=== PATIENT | female | born 1985 | race Caucasian/White ===

== ENCOUNTER 2018-07-15 15:37 | Emergency (ER) | payer OTHER ==
[2018-07-15] MEDS ORDERED: Ondansetron 4 MG/2 ML SDV IVPUSH ONE (15:40)
[2018-07-15] MEDS ORDERED: Sodium Chloride 0.9% 1,000 ML IV ONE ×2 (15:40→18:21)
--- NOTE | 2018-07-15 15:46 | EDM.PDOC ---
ED HPI GENERAL MEDICAL PROBLEM - General Chief Complaint: Gastrointestinal Problem Stated Complaint: VOMITING FOR 9 DAYS Time Seen by Provider: 07/15/18 15:44 Source of Information: Reports: Patient History Limitations: Reports: No Limitations - History of Present Illness INITIAL COMMENTS - FREE TEXT/NARRATIVE: HISTORY AND PHYSICAL: History of present illness: Patient is a 32-year-old female who presents to the emergency room with complaints of nausea, vomiting, diarrhea and generalized abdominal pain 9 days. Patient states that immediately after eating she will have bouts of either diarrhea or vomiting. She states she has been trying to use Imodium and probiotics [id number] which have not alleviated any of her symptoms. Patient reports that she has not been able to keep down her home medications over the past several days. Patient denies any fever, chills, headache, change in vision, syncope or near syncope. Denies any chest pain, back pain, shortness of breath or cough. Denies any abdominal pain, nausea, vomiting, diarrhea, constipation or dysuria. Has not noted any blood in urine or stool. Patient has been eating and drinking appropriately. Review of systems: As per history of present illness and below otherwise all systems reviewed and negative. Past medical history: As per history of present illness and as reviewed below otherwise noncontributory. Surgical history: As per history of present illness and as reviewed below otherwise noncontributory. Social history: See social history for further information Family history: As per history of present illness and as reviewed below otherwise noncontributory. Physical exam: General: Well-developed and well nourished 32-year-old female. Alert and oriented. Nontoxic appearing and in no acute distress. HEENT: Atraumatic, normocephalic, pupils equal and reactive bilaterally, negative for conjunctival pallor or scleral icterus, mucous membranes moist, TMs normal bilaterally, throat clear, neck supple, nontender, trachea midline. No drooling or trismus noted. No meningeal signs. No hot potato voice noted. Lungs: Clear to auscultation, breath sounds equal bilaterally, chest nontender. Heart: S1S2, regular rate and rhythm without overt murmur Abdomen: Soft, nondistended, right upper and right lower quadrant tenderness. Negative for masses or hepatosplenomegaly. Negative for costovertebral tenderness. Pelvis: Stable nontender. Genitourinary: Deferred. Rectal: Deferred. Skin: Intact, warm, dry. No lesions or rashes noted. Extremities: Atraumatic, moves all extremities per self with difficulty or deficits, negative for cords or calf pain. Neurovascular unremarkable. Neuro: Awake, alert, oriented. Cranial nerves II through XII unremarkable. Cerebellum unremarkable. Motor and sensory unremarkable throughout. Exam nonfocal. Notes: Patient continues to have nausea and vomiting after the Zofran, Reglan and Phenergan. We'll continue to monitor. CT of the abdomen and pelvis results are pending. Lab work is unremarkable. Stool study was obtained, at this time C. difficile and Campylobacter are negative. CT of the abdomen and pelvis is unremarkable. No findings to explain the abdominal pain, nausea or diarrhea. Patient's symptoms and vital signs have improved. I did share all the findings with the patient. I offered her admission for dehydration and overnight monitoring. She declines stating she would like to be discharged to home. We discussed signs and symptoms that would prompt her to return to the emergency room. Supportive care measures were reviewed and discussed. Voices understanding and is agreeable to plan of care. Denies any further questions or concerns at this time. Diagnostics: CBC, CMP, lipase, UA, hCGU Therapeutics: IV fluid, Zofran, Bentyl, Reglan, Phenergan, Labetolol Prescription: Phenergan (#8) Zofran (#10) Impression: Gastroenteritis Hypertension Plan: 1. Please take your home medications as directed. He may want to take these after your nausea and vomiting has subsided with the medications that have been prescribed. 2. Small frequent sips of fluids to prevent dehydration. BRAT (bananas, rice, applesauce, toast) diet and then advance as tolerated. 3. Follow-up with your primary care provider as discussed. Return to the ED as needed and as discussed. Definitive disposition and diagnosis as appropriate pending reevaluation and review of above. right abdomen Pain Score (Numeric/FACES): 8 - Related Data Allergies Allergy/AdvReac Type Severity Reaction Status Date / Time No Known Allergies Allergy Verified 07/15/18 16:14 Home Meds: Home Meds Labetalol 1 tab PO ASDIRECTED 07/15/18 [History] Omeprazole Magnesium [Prilosec Otc] 1 tab PO ASDIRECTED 07/15/18 [History] Sertraline HCl [Zoloft] 1 tab PO DAILY 07/15/18 [History] busPIRone [Buspar] 1 tab PO DAILY 07/15/18 [History] ED ROS GENERAL - Review of Systems Review Of Systems: ROS reveals no pertinent complaints other than HPI. ED EXAM, GI/ABD - Physical Exam Exam: See Below (See dictation) Course - Vital Signs Last Recorded V/S: Last Vital Signs Temp 97.9 F 07/15/18 16:00 Pulse 65 07/15/18 18:50 Resp 20 07/15/18 17:53 BP 183/106 H 07/15/18 18:50 Pulse Ox 97 07/15/18 17:53 - Orders/Labs/Meds Orders: Active Orders 24 hr Category Date Time Status CULTURE STOOL + CAMPY+SHIGATOX [RM] Stat Lab 07/15/18 16:51 Results OVA & PARASITES BY IMMUNOASSAY [MREF] Stat Lab 07/15/18 16:51 Received Sodium Chloride 0.9% [Normal Saline] 1,000 ml Med 07/15/18 18:21 Active IV STAT Isolation [COMM] Stat Oth 07/15/18 15:54 Ordered Medication Orders Sodium Chloride (Normal Saline) 1,000 mls @ 250 mls/hr IV STAT ONE Stop: 07/15/18 22:20 Last Admin: 07/15/18 18:35 Dose: 250 mls/hr Labs: Laboratory Tests 07/15/18 07/15/18 07/15/18 Range/Units 16:05 16:05 16:51 WBC 9.95 (4.0-11.0) K/uL RBC 5.78 (4.30-5.90) M/uL Hgb 14.7 (12.0-16.0) g/dL Hct 46.1 H (36.0-46.0) % MCV 79.8 L (80.0-98.0) fL MCH 25.4 L (27.0-32.0) pg MCHC 31.9 (31.0-37.0) g/dL RDW Std Deviation 45.6 (28.0-62.0) fl RDW Coeff of Lisa 16 H (11.0-15.0) % Plt Count 279 (150-400) K/uL MPV 11.80 (7.40-12.00) fL Neut % (Auto) 57.7 (48.0-80.0) % Lymph % (Auto) 31.3 (16.0-40.0) % [place] % (Auto) 8.2 (0.0-15.0) % Eos % (Auto) 2.0 (0.0-7.0) % Baso % (Auto) 0.8 (0.0-1.5) % Neut # (Auto) 5.7 (1.4-5.7) K/uL Lymph # (Auto) 3.1 H (0.6-2.4) K/uL [place] # (Auto) 0.8 (0.0-0.8) K/uL Eos # (Auto) 0.2 (0.0-0.7) K/uL Baso # (Auto) 0.1 (0.0-0.1) K/uL Nucleated RBC % 0.0 /100WBC Nucleated RBCs # 0 K/uL Sodium 140 (136-145) mmol/L Potassium 3.7 (3.5-5.1) mmol/L Chloride 105 (98-107) mmol/L Carbon Dioxide 25.7 (21.0-32.0) mmol/L BUN 16 (7.0-18.0) mg/dL Creatinine 0.9 (0.6-1.0) mg/dL Est Cr Clr Drug Dosing 74.23 mL/min Estimated GFR (MDRD) > 60.0 ml/min Glucose 99 (74-106) mg/dL Calcium 9.0 (8.5-10.1) mg/dL Total Bilirubin 1.0 (0.2-1.0) mg/dL AST 93 H (15-37) IU/L ALT 153 H (14-63) IU/L Alkaline Phosphatase 104 (46-116) U/L Total Protein 7.9 (6.4-8.2) g/dL Albumin 3.7 (3.4-5.0) g/dL Globulin 4.2 H (2.6-4.0) g/dL Albumin/Globulin Ratio 0.9 (0.9-1.6) Lipase 236 (73-393) U/L Urine Color YELLOW Urine Appearance CLEAR Urine pH 6.0 (5.0-8.0) Ur Specific [place] 1.025 (1.001-1.035) Urine Protein TRACE H (NEGATIVE) mg/dL Urine Glucose (UA) NEGATIVE (NEGATIVE) mg/dL Urine Ketones NEGATIVE (NEGATIVE) mg/dL Urine Occult Blood NEGATIVE (NEGATIVE) Urine Nitrite NEGATIVE (NEGATIVE) Urine Bilirubin NEGATIVE (NEGATIVE) Urine Urobilinogen 0.2 (<2.0) EU/dL Ur Leukocyte Esterase NEGATIVE (NEGATIVE) Urine RBC 0-2 (0-2/HPF) Urine WBC 3-6 (0-5/HPF) Ur Epithelial Cells MANY (NONE-FEW) Urine Bacteria FEW (NEGATIVE) Urine HCG, Qual (NEGATIVE) 07/15/18 Range/Units 16:51 WBC (4.0-11.0) K/uL RBC (4.30-5.90) M/uL Hgb (12.0-16.0) g/dL Hct (36.0-46.0) % MCV (80.0-98.0) fL MCH (27.0-32.0) pg MCHC (31.0-37.0) g/dL RDW Std Deviation (28.0-62.0) fl RDW Coeff of Lisa (11.0-15.0) % Plt Count (150-400) K/uL MPV (7.40-12.00) fL Neut % (Auto) (48.0-80.0) % Lymph % (Auto) (16.0-40.0) % [place] % (Auto) (0.0-15.0) % Eos % (Auto) (0.0-7.0) % Baso % (Auto) (0.0-1.5) % Neut # (Auto) (1.4-5.7) K/uL Lymph # (Auto) (0.6-2.4) K/uL [place] # (Auto) (0.0-0.8) K/uL Eos # (Auto) (0.0-0.7) K/uL Baso # (Auto) (0.0-0.1) K/uL Nucleated RBC % /100WBC Nucleated RBCs # K/uL Sodium (136-145) mmol/L Potassium (3.5-5.1) mmol/L Chloride (98-107) mmol/L Carbon Dioxide (21.0-32.0) mmol/L BUN (7.0-18.0) mg/dL Creatinine (0.6-1.0) mg/dL Est Cr Clr Drug Dosing mL/min Estimated GFR (MDRD) ml/min Glucose (74-106) mg/dL Calcium (8.5-10.1) mg/dL Total Bilirubin (0.2-1.0) mg/dL AST (15-37) IU/L ALT (14-63) IU/L Alkaline Phosphatase (46-116) U/L Total Protein (6.4-8.2) g/dL Albumin (3.4-5.0) g/dL Globulin (2.6-4.0) g/dL Albumin/Globulin Ratio (0.9-1.6) Lipase (73-393) U/L Urine Color Urine Appearance Urine pH (5.0-8.0) Ur Specific [place] (1.001-1.035) Urine Protein (NEGATIVE) mg/dL Urine Glucose (UA) (NEGATIVE) mg/dL Urine Ketones (NEGATIVE) mg/dL Urine Occult Blood (NEGATIVE) Urine Nitrite (NEGATIVE) Urine Bilirubin (NEGATIVE) Urine Urobilinogen (<2.0) EU/dL Ur Leukocyte Esterase (NEGATIVE) Urine RBC (0-2/HPF) Urine WBC (0-5/HPF) Ur Epithelial Cells (NONE-FEW) Urine Bacteria (NEGATIVE) Urine HCG, Qual NEGATIVE (NEGATIVE) Meds: Medications Generic Name Dose Route Start Last Admin Trade Name Johnnyq PRN Reason Stop Dose Admin Sodium Chloride 1,000 mls @ 250 mls/hr 07/15/18 18:21 07/15/18 18:35 Normal Saline IV 07/15/18 22:20 250 mls/hr STAT ONE Administration Discontinued Medications Generic Name Dose Route Start Last Admin Trade Name Freq PRN Reason Stop Dose Admin Dicyclomine HCl 10 mg 07/15/18 15:54 07/15/18 16:06 Bentyl PO 07/15/18 15:55 10 mg ONETIME ONE Administration Diphenhydramine HCl 25 mg 07/15/18 17:45 07/15/18 17:50 Benadryl IVPUSH 07/15/18 17:46 25 mg ONETIME ONE Administration Sodium Chloride 1,000 mls @ 999 mls/hr 07/15/18 15:40 07/15/18 16:06 Normal Saline IV 07/15/18 16:40 999 mls/hr STAT ONE Administration Iopamidol 100 ml 07/15/18 17:36 07/15/18 17:36 Isovue Multipack-370 (76%) IVPUSH 07/15/18 17:37 100 ml ONETIME STA Administration Ketorolac Tromethamine 30 mg 07/15/18 17:53 07/15/18 18:04 Toradol IVPUSH 07/15/18 17:54 30 mg ONETIME ONE Administration Labetalol HCl 20 mg 07/15/18 18:03 07/15/18 18:08 Normodyne IVPUSH 07/15/18 18:04 20 mg NOW ONE Administration Protocol Labetalol HCl Confirm 07/15/18 18:06 07/15/18 18:10 Normodyne Administered 07/15/18 18:07 Not Given Dose 100 mg .ROUTE .STK-MED ONE Metoclopramide HCl 10 mg 07/15/18 17:45 07/15/18 17:50 Reglan IV 07/15/18 17:46 10 mg ONETIME ONE Administration Ondansetron HCl 4 mg 07/15/18 15:40 07/15/18 16:06 Zofran IVPUSH 07/15/18 15:41 4 mg ONETIME ONE Administration Promethazine HCl 25 mg 07/15/18 16:50 07/15/18 17:00 Phenergan IM 07/15/18 16:51 25 mg ONETIME ONE Administration Departure - Departure Time of Disposition: 19:05 Disposition: Home, Self-Care 01 Clinical Impression: Gastroenteritis Hypertension Qualifiers: Hypertension type: unspecified Qualified Code(s): I10 - Essential (primary) hypertension - Discharge Information Instructions: Viral Gastroenteritis, Adult, [id number] Referrals: PCP,Unknown [Primary Care Provider] - Forms: ED Department Discharge Additional Instructions: The following information is given to patients seen in the emergency department who are being discharged to home. This information is to outline your options for follow-up care. We provide all patients seen in our emergency department with a follow-up referral. The need for follow-up, as well as the timing and circumstances, are variable depending upon the specifics of your emergency department visit. If you don't have a primary care physician on staff, we will provide you with a referral. We always advise you to contact your personal physician following an emergency department visit to inform them of the circumstance of the visit and for follow-up with them and/or the need for any referrals to a consulting specialist. The emergency department will also refer you to a specialist when appropriate. This referral assures that you have the opportunity for follow-up care with a specialist. All of these measure are taken in an effort to provide you with optimal care, which includes your follow-up. Under all circumstances we always encourage you to contact your private physician who remains a resource for coordinating your care. When calling for follow-up care, please make the office aware that this follow-up is from your recent emergency room visit. If for any reason you are refused follow-up, please contact the [facility] Emergency Department at and asked to speak to the emergency department charge nurse. [facility] [address] [place] [id number] [facility] [address] [place] [phone] 1. Please take your home medications as directed. You may want to take these after your nausea and vomiting has subsided with the medications that have been prescribed. 2. Small frequent sips of fluids to prevent dehydration. BRAT (bananas, rice, applesauce, toast) diet and then advance as tolerated. 3. Follow-up with your primary care provider as discussed. Return to the ED as needed and as discussed. - My Orders Last 24 Hours: My Active Orders 07/15/18 15:54 Isolation [COMM] Stat 07/15/18 16:51 CULTURE STOOL + CAMPY+SHIGATOX [RM] Stat OVA & PARASITES BY IMMUNOASSAY [MREF] Stat 07/15/18 18:21 Sodium Chloride 0.9% [Normal Saline] 1,000 ml IV STAT - Assessment/Plan Last 24 Hours: My Active Orders 07/15/18 15:54 Isolation [COMM] Stat 07/15/18 16:51 CULTURE STOOL + CAMPY+SHIGATOX [RM] Stat OVA & PARASITES BY IMMUNOASSAY [MREF] Stat 07/15/18 18:21 Sodium Chloride 0.9% [Normal Saline] 1,000 ml IV STAT
[2018-07-15] MEDS ORDERED: Dicyclomine 10 MG Cap PO ONE (15:54)
[2018-07-15] MEDS ORDERED: Promethazine 25 MG/ML SDV IM ONE (16:50)
[2018-07-15 16:57] LABS: CHLORIDE,CL 105 mmol/L (98-107); SODIUM,NA 140 mmol/L (136-145)
[2018-07-15] MEDS ORDERED: Iopamidol 755 MG/ML 500 ML Multipack Bottle IVPUSH STA (17:36)
[2018-07-15] MEDS ORDERED: Metoclopramide 10 MG/2 ML SDV IV ONE (17:45)
[2018-07-15] MEDS ORDERED: diphenhydrAMINE 50 MG/ML SDV IVPUSH ONE (17:45)
[2018-07-15] MEDS ORDERED: Ketorolac 30 MG/ML SDV IVPUSH ONE (17:53)
[2018-07-15] MEDS ORDERED: Labetalol 20 MG/4 ML Syringe IVPUSH ONE (18:03)
[2018-07-15] MEDS ORDERED: Labetalol 100 MG/20 ML MDV ONE (18:06)
--- NOTE | 2018-07-15 18:54 | CT ---
INDICATION: Right upper quadrant abdomen pain with vomiting and diarrhea. TECHNIQUE: CT abdomen and pelvis acquired with 100 cc Isovue 370 IV contrast. COMPARISON: None. FINDINGS: Lower chest: Unremarkable. Liver: Unremarkable. Normal in size and attenuation. No masses. Gallbladder and bile ducts: Status post cholecystectomy. Pancreas: Unremarkable. No mass or inflammation. Spleen: Unremarkable. Normal in size. No masses. Adrenal glands: Unremarkable. No nodules. Kidneys: Unremarkable. No masses, stones, or hydronephrosis. GI tract: Unremarkable. Normal in caliber. No sign of mass or inflammation. Normal appendix. Vasculature: Unremarkable. Mesenteric arteries are patent. Lymph nodes: No lymphadenopathy. Omentum/Peritoneum/Abdominal Wall: Unremarkable. No sign of mass or infiltration. No free air or significant free fluid. Pelvis: Unremarkable. Bones: Unremarkable for age. IMPRESSION: Unremarkable CT of the abdomen and pelvis. No findings to explain abdominal pain, vomiting or diarrhea. Please note that all CT scans at this facility use dose modulation, iterative reconstruction, and/or weight-based dosing when appropriate to reduce radiation dose to as low as reasonably achievable. Dictated by Andrew Jain MD @ Jul 15 2018 6:41PM Signed by Dr. Andrew Jain @ Jul 15 2018 6:53PM
== END 2018-07-15 19:25 | disposition home or self-care (01) ==
LOC: MW.ED 15:37
DX: K52.9 Noninfective gastroenteritis and colitis, unspecified (principal); I10 Essential (primary) hypertension; Z79.899 Other long term (current) drug therapy
CPT/HCPCS: 36415; 74177; 80053; 81001; 81025; 83690; 85025; 87046; 87324; 87328; 87329; 87899; 96361; 96372; 96374; 96375; 99284; A9270; J1200; J1885; J2405; J2550; J2765; J3490; J7040; Q9967

== ENCOUNTER 2018-07-17 15:41 | Observation (INO) | payer OTHER ==
[2018-07-17] MEDS ORDERED: Ondansetron 4 MG/2 ML SDV IVPUSH ONE ×2 (16:10→19:28)
[2018-07-17] MEDS ORDERED: Sodium Chloride 0.9% 1,000 ML IV ONE (16:10)
[2018-07-17] MEDS ORDERED: Pantoprazole 40 MG Vial IVPUSH ONE (16:15)
--- NOTE | 2018-07-17 16:39 | EDM.PDOC ---
ED HPI GENERAL MEDICAL PROBLEM - General Chief Complaint: Gastrointestinal Problem Stated Complaint: VOMITTING Time Seen by Provider: 07/17/18 15:49 Source of Information: Reports: Patient History Limitations: Reports: No Limitations - History of Present Illness INITIAL COMMENTS - FREE TEXT/NARRATIVE: HISTORY AND PHYSICAL: History of present illness: Patient is a 32-year-old female presents to the ED today for complaints of nausea, vomiting, diarrhea, and right-sided abdominal pain 11 days. Patient states she was seen in the ED a few days ago and was worked up for these symptoms. Patient states that starting today she has had 2 episodes of vomiting up blood with clotting. Patient states her symptoms have persisted from her prior workup without improvement. Patient rates her abdominal pain a 7 out of 10 and states is worse when she presses on it. Patient continues to have watery diarrhea approximately 4-5 times a day. She has been taking Imodium and probiotics without any relief of symptoms. Patient states that whenever she eats or drinks she throws up within 15 minutes. Patient was seen in the ED on 07/15/18 and had received a thorough workup at that time. She was offered admission and declined at that time. Patient denies fever, chills, chest pain, shortness of breath, or cough. Denies headache, neck stiff ness, change in vision, syncope, or near syncope. Denies dysuria. Has not noted any blood in urine or stool. Patient has a history of hypertension. Review of systems: As per history of present illness and below otherwise all systems reviewed and negative. Past medical history: As per history of present illness and as reviewed below otherwise noncontributory. Surgical history: As per history of present illness and as reviewed below otherwise noncontributory. Social history: See social history for further information Family history: As per history of present illness and as reviewed below otherwise noncontributory. Physical exam: General: Patient is alert, oriented, and in no acute distress. Patient sitting comfortably on exam table. HEENT: Atraumatic, normocephalic, pupils equal and reactive bilaterally, negative for conjunctival pallor or scleral icterus, mucous membranes moist, TMs normal bilaterally, throat clear, neck supple, nontender, trachea midline. No drooling or trismus noted. No meningeal signs. No hot potato voice noted. Lungs: Clear to auscultation, breath sounds equal bilaterally, chest nontender. Heart: S1S2, regular rate and rhythm without overt murmur Abdomen: Obese, Soft, nondistended. Moderate to severe pain to palpation of the right upper and right flank area. Positive bowel sounds throughout all quadrants. Negative for masses or hepatosplenomegaly. Negative for costovertebral tenderness. Pelvis: Stable nontender. Genitourinary: Deferred. Rectal: Deferred. Skin: Intact, warm, dry. No lesions or rashes noted. Extremities: Atraumatic, negative for cords or calf pain. Neurovascular unremarkable. Neuro: Awake, alert, oriented. Cranial nerves II through XII unremarkable. Cerebellum unremarkable. Motor and sensory unremarkable throughout. Exam nonfocal. Notes: Dr. Coronado verbally involved in patients care. Patient did show me a picture of her hematemesis and there appears to be a moderate amount of blood with clots that she had vomited. Dr. Kurtz was contacted on patient and will admit to observation. Voices understanding and is agreeable to plan of care. Denies any further questions or concerns at this time. Diagnostics: CBC, CMP, UA, lipase, H. pylori, uhcg, Abd limited US Therapeutics: Protonix, saline, zofran, labetalol Impression: Hematemesis Gastroenteritis with diarrhea and dehydration Abdominal pain Hypertension Plan: 1. Admit to observation to Dr. Kurtz Definitive disposition and diagnosis as appropriate pending reevaluation and review of above. Right Upper Abdominal Pain Score (Numeric/FACES): 9 - Related Data Allergies Allergy/AdvReac Type Severity Reaction Status Date / Time No Known Allergies Allergy Verified 07/17/18 15:54 Home Meds: Home Meds Labetalol 1 tab PO ASDIRECTED 07/15/18 [History] Omeprazole Magnesium [Prilosec Otc] 1 tab PO ASDIRECTED 07/15/18 [History] Sertraline HCl [Zoloft] 1 tab PO DAILY 07/15/18 [History] busPIRone [Buspar] 1 tab PO DAILY 07/15/18 [History] Ondansetron [Zofran ODT] 4 mg PO ASDIRECTED 07/17/18 [History] Promethazine HCl [Phenergan] 25 mg RECTAL ASDIRECTED 07/17/18 [History] Past Medical History HEENT History: Reports: None Cardiovascular History: Reports: Hypertension Respiratory History: Reports: None Gastrointestinal History: Reports: GERD Genitourinary History: Reports: None 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 Musculoskeletal History: Reports: None Neurological History: Reports: None Psychiatric History: Reports: None Endocrine/Metabolic History: Reports: None Hematologic History: Reports: None Immunologic History: Reports: None Oncologic (Cancer) History: Reports: None Dermatologic History: Reports: None - Past Surgical History Head Surgeries/Procedures: Reports: None HEENT Surgical History: Reports: None Cardiovascular Surgical History: Reports: None Respiratory Surgical History: Reports: None GI Surgical History: Reports: Cholecystectomy Female Surgical History: Reports: Section, Tubal Ligation, Other ( See Below) Other Female Surgeries/Procedures: kidney stents Endocrine Surgical History: Reports: None Neurological Surgical History: Reports: None Musculoskeletal Surgical History: Reports: None Oncologic Surgical History: Reports: None Dermatological Surgical History: Reports: None Social & Family History - Family History Family Medical History: Noncontributory - Tobacco Use Smoking Status *Q: Never Smoker - Caffeine Use Caffeine Use: Reports: None - Recreational Drug Use Recreational Drug Use: No ED ROS GENERAL - Review of Systems Review Of Systems: ROS reveals no pertinent complaints other than HPI. ED EXAM, GI/ABD - Physical Exam Exam: See Below (see dictation) Course - Vital Signs Last Recorded V/S: Last Vital Signs Temp 36.7 C 07/17/18 15:48 Pulse 65 07/17/18 19:36 Resp 18 07/17/18 19:36 BP 196/110 H 07/17/18 19:36 Pulse Ox 99 07/17/18 19:36 - Orders/Labs/Meds Orders: Active Orders 24 hr Category Date Time Status Admission Status [Patient Status] [ADT] Stat ADT 07/17/18 20:38 Ordered Labs: Laboratory Tests 07/17/18 07/17/18 07/17/18 Range/Units 16:50 16:55 17:47 WBC 9.31 (4.0-11.0) K/uL RBC 5.86 (4.30-5.90) M/uL Hgb 15.0 (12.0-16.0) g/dL Hct 46.6 H (36.0-46.0) % MCV 79.5 L (80.0-98.0) fL MCH 25.6 L (27.0-32.0) pg MCHC 32.2 (31.0-37.0) g/dL RDW Std Deviation 46.7 (28.0-62.0) fl RDW Coeff of Lisa 17 H (11.0-15.0) % Plt Count 208 (150-400) K/uL MPV 11.80 (7.40-12.00) fL Neut % (Auto) 58.3 (48.0-80.0) % Lymph % (Auto) 28.1 (16.0-40.0) % [place] % (Auto) 7.5 (0.0-15.0) % Eos % (Auto) 5.3 (0.0-7.0) % Baso % (Auto) 0.8 (0.0-1.5) % Neut # (Auto) 5.4 (1.4-5.7) K/uL Lymph # (Auto) 2.6 H (0.6-2.4) K/uL [place] # (Auto) 0.7 (0.0-0.8) K/uL Eos # (Auto) 0.5 (0.0-0.7) K/uL Baso # (Auto) 0.1 (0.0-0.1) K/uL Nucleated RBC % 0.0 /100WBC Nucleated RBCs # 0 K/uL Sodium 141 (136-145) mmol/L Potassium 4.2 (3.5-5.1) mmol/L Chloride 106 (98-107) mmol/L Carbon Dioxide 26.6 (21.0-32.0) mmol/L BUN 12 (7.0-18.0) mg/dL Creatinine 0.8 (0.6-1.0) mg/dL Est Cr Clr Drug Dosing 83.51 mL/min Estimated GFR (MDRD) > 60.0 ml/min Glucose 81 (74-106) mg/dL Calcium 9.1 (8.5-10.1) mg/dL Total Bilirubin 1.0 (0.2-1.0) mg/dL AST 87 H (15-37) IU/L ALT 139 H (14-63) IU/L Alkaline Phosphatase 91 (46-116) U/L Total Protein 7.0 (6.4-8.2) g/dL Albumin 3.5 (3.4-5.0) g/dL Globulin 3.5 (2.6-4.0) g/dL Albumin/Globulin Ratio 1.0 (0.9-1.6) Lipase 216 (73-393) U/L Urine Color Urine Appearance Urine pH (5.0-8.0) Ur Specific [address] (1.001-1.035) Urine Protein (NEGATIVE) mg/dL Urine Glucose (UA) (NEGATIVE) mg/dL Urine Ketones (NEGATIVE) mg/dL Urine Occult Blood (NEGATIVE) Urine Nitrite (NEGATIVE) Urine Bilirubin (NEGATIVE) Urine Urobilinogen (<2.0) EU/dL Ur Leukocyte Esterase (NEGATIVE) Urine RBC (0-2/HPF) Urine WBC (0-5/HPF) Ur Epithelial Cells (NONE-FEW) Amorphous Sediment (NEGATIVE) Urine Bacteria (NEGATIVE) Urine Mucus (NONE-MOD) Urine HCG, Qual (NEGATIVE) H. pylori IgG Antibody NEGATIVE (NEG) 07/17/18 07/17/18 Range/Units 19:16 19:16 WBC (4.0-11.0) K/uL RBC (4.30-5.90) M/uL Hgb (12.0-16.0) g/dL Hct (36.0-46.0) % MCV (80.0-98.0) fL MCH (27.0-32.0) pg MCHC (31.0-37.0) g/dL RDW Std Deviation (28.0-62.0) fl RDW Coeff of Lisa (11.0-15.0) % Plt Count (150-400) K/uL MPV (7.40-12.00) fL Neut % (Auto) (48.0-80.0) % Lymph % (Auto) (16.0-40.0) % [place] % (Auto) (0.0-15.0) % Eos % (Auto) (0.0-7.0) % Baso % (Auto) (0.0-1.5) % Neut # (Auto) (1.4-5.7) K/uL Lymph # (Auto) (0.6-2.4) K/uL [place] # (Auto) (0.0-0.8) K/uL Eos # (Auto) (0.0-0.7) K/uL Baso # (Auto) (0.0-0.1) K/uL Nucleated RBC % /100WBC Nucleated RBCs # K/uL Sodium (136-145) mmol/L Potassium (3.5-5.1) mmol/L Chloride (98-107) mmol/L Carbon Dioxide (21.0-32.0) mmol/L BUN (7.0-18.0) mg/dL Creatinine (0.6-1.0) mg/dL Est Cr Clr Drug Dosing mL/min Estimated GFR (MDRD) ml/min Glucose (74-106) mg/dL Calcium (8.5-10.1) mg/dL Total Bilirubin (0.2-1.0) mg/dL AST (15-37) IU/L ALT (14-63) IU/L Alkaline Phosphatase (46-116) U/L Total Protein (6.4-8.2) g/dL Albumin (3.4-5.0) g/dL Globulin (2.6-4.0) g/dL Albumin/Globulin Ratio (0.9-1.6) Lipase (73-393) U/L Urine Color YELLOW Urine Appearance SLT CLOUDY Urine pH 7.0 (5.0-8.0) Ur Specific [address] 1.015 (1.001-1.035) Urine Protein TRACE H (NEGATIVE) mg/dL Urine Glucose (UA) NEGATIVE (NEGATIVE) mg/dL Urine Ketones NEGATIVE (NEGATIVE) mg/dL Urine Occult Blood NEGATIVE (NEGATIVE) Urine Nitrite NEGATIVE (NEGATIVE) Urine Bilirubin NEGATIVE (NEGATIVE) Urine Urobilinogen 1.0 (<2.0) EU/dL Ur Leukocyte Esterase NEGATIVE (NEGATIVE) Urine RBC 0-1 (0-2/HPF) Urine WBC 0-2 (0-5/HPF) Ur Epithelial Cells MODERATE (NONE-FEW) Amorphous Sediment MODERATE (NEGATIVE) Urine Bacteria FEW (NEGATIVE) Urine Mucus MODERATE (NONE-MOD) Urine HCG, Qual NEGATIVE (NEGATIVE) H. pylori IgG Antibody (NEG) Meds: Medications Discontinued Medications Generic Name Dose Route Start Last Admin Trade Name Freq PRN Reason Stop Dose Admin Sodium Chloride 1,000 mls @ 999 mls/hr 07/17/18 16:10 07/17/18 16:31 Normal Saline IV 07/17/18 17:10 250 mls/hr BOLUS ONE Infusion Ketorolac Tromethamine 30 mg 07/17/18 18:13 07/17/18 18:29 Toradol IVPUSH 07/17/18 18:14 30 mg ONETIME ONE Administration Labetalol HCl 20 mg 07/17/18 20:12 07/17/18 20:22 Normodyne IVPUSH 07/17/18 20:13 20 mg NOW ONE Administration Protocol Labetalol HCl Confirm 07/17/18 20:20 07/17/18 20:22 Normodyne Administered 07/17/18 20:21 Not Given Dose 100 mg .ROUTE .STK-MED ONE Morphine Sulfate 2 mg 07/17/18 19:28 07/17/18 19:33 Morphine IVPUSH 07/17/18 19:29 2 mg ONETIME ONE Administration Ondansetron HCl 4 mg 07/17/18 16:10 07/17/18 16:31 Zofran IVPUSH 07/17/18 16:11 4 mg ONETIME ONE Administration Ondansetron HCl 4 mg 07/17/18 19:28 07/17/18 19:34 Zofran IVPUSH 07/17/18 19:29 4 mg ONETIME ONE Administration Pantoprazole Sodium 80 mg 07/17/18 16:15 07/17/18 16:31 Protonix Iv IVPUSH 07/17/18 16:16 80 mg .BOLUS ONE Administration Departure - Departure Time of Disposition: 20:45 Disposition: Refer to Observation Clinical Impression: Hematemesis with nausea, Gastroenteritis, Dehydration Diarrhea Qualifiers: Diarrhea type: unspecified type Qualified Code(s): R19.7 - Diarrhea, unspecified Hypertension Qualifiers: Hypertension type: unspecified Qualified Code(s): I10 - Essential (primary) hypertension - Discharge Information Referrals: PCP,None [Primary Care Provider] - Forms: ED Department Discharge - My Orders Last 24 Hours: My Active Orders 07/17/18 20:38 Admission Status [Patient Status] [ADT] Stat - Assessment/Plan Last 24 Hours: My Active Orders 07/17/18 20:38 Admission Status [Patient Status] [ADT] Stat
[2018-07-17] MEDS ORDERED: Ketorolac 30 MG/ML SDV IVPUSH ONE (18:13)
[2018-07-17 18:27] LABS: CHLORIDE,CL 106 mmol/L (98-107); SODIUM,NA 141 mmol/L (136-145)
[2018-07-17] MEDS ORDERED: Morphine 2 MG/ML Syringe IVPUSH ONE (19:28)
--- NOTE | 2018-07-17 20:06 | US ---
INDICATION: Right upper quadrant pain, nausea, vomiting and diarrhea times 11 days TECHNIQUE: Ultrasound abdomen limited. Sonographic images of the right upper quadrant were obtained using flores-scale and color Doppler images. COMPARISON: None FINDINGS: Liver: Normal in size and echotexture. No masses. No intrahepatic biliary dilatation. Gallbladder: History of cholecystectomy. Common bile duct: 8 mm. Pancreas: Normal. Right kidney: 11.1 cm. Normal echotexture and cortex. No masses, stones, or hydronephrosis. Vasculature: Proximal abdominal aorta and IVC are normal. IMPRESSION: History of cholecystectomy. Mild dilatation of the common bile duct at 8 millimeters most likely related to reservoir effect. The remainder of the exam is essentially normal. Dictated by Parmjit Delacruz MD @ 07/17/2018 8:05:44 PM Dictated by: Parmjit Delacruz MD @ 07/17/2018 20:05:59 (Electronically Signed)
[2018-07-17] MEDS ORDERED: Labetalol 20 MG/4 ML Syringe IVPUSH ONE (20:12)
[2018-07-17] MEDS ORDERED: Labetalol 100 MG/20 ML MDV ONE (20:20)
[2018-07-17] MEDS ORDERED: Morphine 10 MG/ML Syringe IVPUSH PRN (22:27)
--- NOTE | 2018-07-17 22:33 | PCM.HP ---
H&P History of Present Illness - General Date of Service: 07/17/18 Admit Problem/Dx: Admission Diagnosis/Problem Admission Diagnosis/Problem Gastroenteritis - History of Present Illness Initial Comments - Free Text/Narative: 32 yo female who presents to the ED with complaints of abdominal pain for past 11 days. Patient reports right sided abdominal pain that occurs after she eats. She then vomits whatever she eats. She also reports watery diarrhea. Today she had bright red blood in her vomit. She denies any fevers or blood in her stool. She was seen in the ED two days ago for same symptoms she had a normal CT abdomen and was discharged home. IN the ED she had RUQ performed which is negative. Right Upper Abdominal Pain Score (Numeric/FACES): 9 - Related Data Allergies/Adverse Reactions: Allergies Allergy/AdvReac Type Severity Reaction Status Date / Time adhesive Allergy Mild Rash Verified 07/18/18 00:52 Home Medications: Home Meds busPIRone [Buspar] 45 mg PO DAILY 07/15/18 [History] Ondansetron [Zofran ODT] 4 mg PO ASDIRECTED PRN 07/17/18 [History] Promethazine HCl [Phenergan] 25 mg RECTAL ASDIRECTED PRN 07/17/18 [History] Sertraline HCl 150 mg PO DAILY 07/17/18 [History] Labetalol [Normodyne] 400 mg PO BID 07/18/18 [History] Pantoprazole Sodium [Protonix] 40 mg PO BID #60 tablet. 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 Musculoskeletal History: Reports: None Neurological History: Reports: None Psychiatric History: Reports: None Endocrine/Metabolic History: Reports: None Hematologic History: Reports: None Immunologic History: Reports: None Oncologic (Cancer) History: Reports: None Dermatologic History: Reports: None - Past Surgical History Head Surgeries/Procedures: Reports: None HEENT Surgical History: Reports: None Cardiovascular Surgical History: Reports: None Respiratory Surgical History: Reports: None GI Surgical History: Reports: Cholecystectomy Female Surgical History: Reports: Section, Tubal Ligation, Other ( See Below) Other Female Surgeries/Procedures: kidney stents Endocrine Surgical History: Reports: None Neurological Surgical History: Reports: None Musculoskeletal Surgical History: Reports: None Oncologic Surgical History: Reports: None Dermatological Surgical History: Reports: None Social & Family History - Family History Family Medical History: Noncontributory - Tobacco Use Smoking Status *Q: Never Smoker - Caffeine Use Caffeine Use: Reports: None - Recreational Drug Use Recreational Drug Use: No H&P Review of Systems - Review of Systems: Review Of Systems: ROS reveals no pertinent complaints other than HPI. Exam - Exam Exam: See Below - Vital Signs Vital Signs: Last Vital Signs Temp 36.7 C 07/17/18 15:48 Pulse 62 07/17/18 20:44 Resp 18 07/17/18 20:44 BP 181/106 H 07/17/18 20:44 Pulse Ox 99 07/17/18 20:44 Weight: 99.9 kg - Exam Quality Assessment: DVT Prophylaxis General: Alert HEENT: Mucosa Moist & [place] Lungs: Clear to Auscultation, Normal Respiratory Effort Cardiovascular: Regular Rate, Regular Rhythm GI/Abdominal Exam: Soft, Non-Tender Extremities: Normal Inspection, Non-Tender - Patient Data Lab Results Last 24 hrs: Laboratory Results - last 24 hr 07/17/18 07/17/18 07/17/18 Range/Units 16:50 16:55 17:47 WBC 9.31 (4.0-11.0) K/uL RBC 5.86 (4.30-5.90) M/uL Hgb 15.0 (12.0-16.0) g/dL Hct 46.6 H (36.0-46.0) % MCV 79.5 L (80.0-98.0) fL MCH 25.6 L (27.0-32.0) pg MCHC 32.2 (31.0-37.0) g/dL RDW Std Deviation 46.7 (28.0-62.0) fl RDW Coeff of Lisa 17 H (11.0-15.0) % Plt Count 208 (150-400) K/uL MPV 11.80 (7.40-12.00) fL Neut % (Auto) 58.3 (48.0-80.0) % Lymph % (Auto) 28.1 (16.0-40.0) % [place] % (Auto) 7.5 (0.0-15.0) % Eos % (Auto) 5.3 (0.0-7.0) % Baso % (Auto) 0.8 (0.0-1.5) % Neut # (Auto) 5.4 (1.4-5.7) K/uL Lymph # (Auto) 2.6 H (0.6-2.4) K/uL [place] # (Auto) 0.7 (0.0-0.8) K/uL Eos # (Auto) 0.5 (0.0-0.7) K/uL Baso # (Auto) 0.1 (0.0-0.1) K/uL Nucleated RBC % 0.0 /100WBC Nucleated RBCs # 0 K/uL Sodium 141 (136-145) mmol/L Potassium 4.2 (3.5-5.1) mmol/L Chloride 106 (98-107) mmol/L Carbon Dioxide 26.6 (21.0-32.0) mmol/L BUN 12 (7.0-18.0) mg/dL Creatinine 0.8 (0.6-1.0) mg/dL Est Cr Clr Drug Dosing 83.51 mL/min Estimated GFR (MDRD) > 60.0 ml/min Glucose 81 (74-106) mg/dL Calcium 9.1 (8.5-10.1) mg/dL Total Bilirubin 1.0 (0.2-1.0) mg/dL AST 87 H (15-37) IU/L ALT 139 H (14-63) IU/L Alkaline Phosphatase 91 (46-116) U/L Total Protein 7.0 (6.4-8.2) g/dL Albumin 3.5 (3.4-5.0) g/dL Globulin 3.5 (2.6-4.0) g/dL Albumin/Globulin Ratio 1.0 (0.9-1.6) Lipase 216 (73-393) U/L Urine Color Urine Appearance Urine pH (5.0-8.0) Ur Specific [place] (1.001-1.035) Urine Protein (NEGATIVE) mg/dL Urine Glucose (UA) (NEGATIVE) mg/dL Urine Ketones (NEGATIVE) mg/dL Urine Occult Blood (NEGATIVE) Urine Nitrite (NEGATIVE) Urine Bilirubin (NEGATIVE) Urine Urobilinogen (<2.0) EU/dL Ur Leukocyte Esterase (NEGATIVE) Urine RBC (0-2/HPF) Urine WBC (0-5/HPF) Ur Epithelial Cells (NONE-FEW) Amorphous Sediment (NEGATIVE) Urine Bacteria (NEGATIVE) Urine Mucus (NONE-MOD) Urine HCG, Qual (NEGATIVE) H. pylori IgG Antibody NEGATIVE (NEG) 07/17/18 07/17/18 Range/Units 19:16 19:16 WBC (4.0-11.0) K/uL RBC (4.30-5.90) M/uL Hgb (12.0-16.0) g/dL Hct (36.0-46.0) % MCV (80.0-98.0) fL MCH (27.0-32.0) pg MCHC (31.0-37.0) g/dL RDW Std Deviation (28.0-62.0) fl RDW Coeff of Lisa (11.0-15.0) % Plt Count (150-400) K/uL MPV (7.40-12.00) fL Neut % (Auto) (48.0-80.0) % Lymph % (Auto) (16.0-40.0) % [place] % (Auto) (0.0-15.0) % Eos % (Auto) (0.0-7.0) % Baso % (Auto) (0.0-1.5) % Neut # (Auto) (1.4-5.7) K/uL Lymph # (Auto) (0.6-2.4) K/uL [place] # (Auto) (0.0-0.8) K/uL Eos # (Auto) (0.0-0.7) K/uL Baso # (Auto) (0.0-0.1) K/uL Nucleated RBC % /100WBC Nucleated RBCs # K/uL Sodium (136-145) mmol/L Potassium (3.5-5.1) mmol/L Chloride (98-107) mmol/L Carbon Dioxide (21.0-32.0) mmol/L BUN (7.0-18.0) mg/dL Creatinine (0.6-1.0) mg/dL Est Cr Clr Drug Dosing mL/min Estimated GFR (MDRD) ml/min Glucose (74-106) mg/dL Calcium (8.5-10.1) mg/dL Total Bilirubin (0.2-1.0) mg/dL AST (15-37) IU/L ALT (14-63) IU/L Alkaline Phosphatase (46-116) U/L Total Protein (6.4-8.2) g/dL Albumin (3.4-5.0) g/dL Globulin (2.6-4.0) g/dL Albumin/Globulin Ratio (0.9-1.6) Lipase (73-393) U/L Urine Color YELLOW Urine Appearance SLT CLOUDY Urine pH 7.0 (5.0-8.0) Ur Specific [place] 1.015 (1.001-1.035) Urine Protein TRACE H (NEGATIVE) mg/dL Urine Glucose (UA) NEGATIVE (NEGATIVE) mg/dL Urine Ketones NEGATIVE (NEGATIVE) mg/dL Urine Occult Blood NEGATIVE (NEGATIVE) Urine Nitrite NEGATIVE (NEGATIVE) Urine Bilirubin NEGATIVE (NEGATIVE) Urine Urobilinogen 1.0 (<2.0) EU/dL Ur Leukocyte Esterase NEGATIVE (NEGATIVE) Urine RBC 0-1 (0-2/HPF) Urine WBC 0-2 (0-5/HPF) Ur Epithelial Cells MODERATE (NONE-FEW) Amorphous Sediment MODERATE (NEGATIVE) Urine Bacteria FEW (NEGATIVE) Urine Mucus MODERATE (NONE-MOD) Urine HCG, Qual NEGATIVE (NEGATIVE) H. pylori IgG Antibody (NEG) Result Diagrams: 07/19/18 04:45 07/19/18 04:45 Problem List Initiated/Reviewed/Updated: Yes Orders Last 24hrs: Active Orders 24 hr Category Date Time Status Admission Status [Patient Status] [ADT] Stat ADT 07/17/18 20:38 Active Antiembolic Devices [RC] PER UNIT ROUTINE Care 07/17/18 22:28 Ordered Oxygen Therapy [RC] PRN Care 07/17/18 22:27 Ordered Up ad Alicia [RC] ASDIRECTED Care 07/17/18 22:27 Ordered VTE/DVT Education [RC] PER UNIT ROUTINE Care 07/17/18 22:27 Ordered Vital Signs [RC] Q4H Care 07/17/18 22:27 Ordered Clear Liquid Diet [DIET] Diet 04/24/19 Breakfast Ordered CBC WITH AUTO DIFF [HEME] AM Lab 07/18/18 05:11 Ordered CBC WITH AUTO DIFF [HEME] AM Lab 07/19/18 05:11 Ordered COMPREHENSIVE METABOLIC PN,CMP [CHEM] AM Lab 07/18/18 05:11 Ordered COMPREHENSIVE METABOLIC PN,CMP [CHEM] AM Lab 07/19/18 05:11 Ordered CULTURE STOOL + CAMPY+SHIGATOX [RM] Routine Lab 07/17/18 22:28 Ordered Morphine Med 07/17/18 22:27 Ordered 2 mg IVPUSH Q4H PRN Ondansetron [Zofran] Med 07/17/18 22:27 Ordered 4 mg IVPUSH Q4H PRN Pantoprazole [ProTONIX IV] Med 07/18/18 09:00 Ordered 40 mg IV Q12HR Sodium Chloride 0.9% @ 125 MLS/HR (1000ml) Med 07/17/18 22:30 Ordered Sodium Chloride 0.9% [Normal Saline] 1,000 ml IV ASDIRECTED Sequential Compression Device [OM.PC] Per Unit Routine Oth 07/17/18 22:27 Ordered Resuscitation Status Routine Resus Stat 07/17/18 22:27 Ordered Medication Orders Sodium Chloride (Normal Saline) 1,000 mls @ 125 mls/hr IV ASDIRECTED SHI Morphine Sulfate (Morphine) 2 mg IVPUSH Q4H PRN PRN Reason: Pain (severe 7-10) Stop: 07/18/18 22:27 Ondansetron HCl (Zofran) 4 mg IVPUSH Q4H PRN PRN Reason: Nausea Pantoprazole Sodium (Protonix Iv) 40 mg IV Q12HR [facility] Assessment/Plan Comment:: 32 yo female admitted with gastroenteritis. We will treat with IV fluids and protonix. Will send for stool studies.
[2018-07-17] MEDS: Sodium Chloride 0.9% 1,000 ML IV SCH (23:40)
[2018-07-18] MEDS: Morphine 2 MG/ML Syringe IVPUSH PRN ×3 (00:18→09:24)
[2018-07-18] MEDS: Ondansetron 4 MG/2 ML SDV IVPUSH PRN ×4 (00:18→14:49)
[2018-07-18 06:53] LABS: CHLORIDE,CL 108 mmol/L (98-107); SODIUM,NA 143 mmol/L (136-145)
[2018-07-18] MEDS: Sodium Chloride 0.9% 1,000 ML IV SCH ×2 (07:23→14:47)
[2018-07-18] MEDS ORDERED: busPIRone 5 MG Tab PO SCH (09:00)
[2018-07-18] MEDS: Pantoprazole 40 MG Vial IV SCH ×2 (09:17→20:59)
[2018-07-18] MEDS: Sertraline 50 MG Tab PO SCH (09:24)
--- NOTE | 2018-07-18 10:12 | PCM.PN ---
- General Info Date of Service: 07/18/18 Admission Dx/Problem (Free Text): Admission Diagnosis/Problem Admission Diagnosis/Problem Gastroenteritis Subjective Update: Feeling somewhat improved overnight. Tolerating CL diet. Had episode of nausea this morning. Stool is more formed this morning, sample sent. No chest pain or SOB. RUQ tenderness continues. Functional Status: Reports: Tolerating Diet, Ambulating, Urinating - Review of Systems General: Reports: No Symptoms. Denies: Weakness, Fatigue, Malaise Pulmonary: Reports: No Symptoms. Denies: Shortness of Breath Cardiovascular: Reports: No Symptoms. Denies: Chest Pain Gastrointestinal: Reports: Abdominal Pain (RUQ, tender), Flatus, Nausea. Denies : Decreased Appetite, Diarrhea Genitourinary: Reports: No Symptoms. Denies: Dysuria, Frequency, Burning Musculoskeletal: Reports: No Symptoms Skin: Reports: No Symptoms Neurological: Reports: No Symptoms Psychiatric: Reports: No Symptoms - Patient Data Vitals - Most Recent: Last Vital Signs Temp 98.5 F 07/18/18 07:20 Pulse 70 07/18/18 07:20 Resp 16 07/18/18 07:20 BP 171/89 H 07/18/18 07:20 Pulse Ox 98 07/18/18 07:20 Weight - Most Recent: 100.425 kg I&O - Last 24 Hours: Intake & Output 07/17/18 07/18/18 07/18/18 22:59 06:59 14:59 Intake Total 1369 Balance 1369 Lab Results Last 24 Hours: Laboratory Results - last 24 hr 07/17/18 07/17/18 07/17/18 Range/Units 16:50 16:55 17:47 WBC 9.31 (4.0-11.0) K/uL RBC 5.86 (4.30-5.90) M/uL Hgb 15.0 (12.0-16.0) g/dL Hct 46.6 H (36.0-46.0) % MCV 79.5 L (80.0-98.0) fL MCH 25.6 L (27.0-32.0) pg MCHC 32.2 (31.0-37.0) g/dL RDW Std Deviation 46.7 (28.0-62.0) fl RDW Coeff of Lisa 17 H (11.0-15.0) % Plt Count 208 (150-400) K/uL MPV 11.80 (7.40-12.00) fL Neut % (Auto) 58.3 (48.0-80.0) % Lymph % (Auto) 28.1 (16.0-40.0) % [place] % (Auto) 7.5 (0.0-15.0) % Eos % (Auto) 5.3 (0.0-7.0) % Baso % (Auto) 0.8 (0.0-1.5) % Neut # (Auto) 5.4 (1.4-5.7) K/uL Lymph # (Auto) 2.6 H (0.6-2.4) K/uL [place] # (Auto) 0.7 (0.0-0.8) K/uL Eos # (Auto) 0.5 (0.0-0.7) K/uL Baso # (Auto) 0.1 (0.0-0.1) K/uL Nucleated RBC % 0.0 /100WBC Nucleated RBCs # 0 K/uL Sodium 141 (136-145) mmol/L Potassium 4.2 (3.5-5.1) mmol/L Chloride 106 (98-107) mmol/L Carbon Dioxide 26.6 (21.0-32.0) mmol/L BUN 12 (7.0-18.0) mg/dL Creatinine 0.8 (0.6-1.0) mg/dL Est Cr Clr Drug Dosing 83.51 mL/min Estimated GFR (MDRD) > 60.0 ml/min Glucose 81 (74-106) mg/dL Calcium 9.1 (8.5-10.1) mg/dL Total Bilirubin 1.0 (0.2-1.0) mg/dL AST 87 H (15-37) IU/L ALT 139 H (14-63) IU/L Alkaline Phosphatase 91 (46-116) U/L Total Protein 7.0 (6.4-8.2) g/dL Albumin 3.5 (3.4-5.0) g/dL Globulin 3.5 (2.6-4.0) g/dL Albumin/Globulin Ratio 1.0 (0.9-1.6) Lipase 216 (73-393) U/L Urine Color Urine Appearance Urine pH (5.0-8.0) Ur Specific [place] (1.001-1.035) Urine Protein (NEGATIVE) mg/dL Urine Glucose (UA) (NEGATIVE) mg/dL Urine Ketones (NEGATIVE) mg/dL Urine Occult Blood (NEGATIVE) Urine Nitrite (NEGATIVE) Urine Bilirubin (NEGATIVE) Urine Urobilinogen (<2.0) EU/dL Ur Leukocyte Esterase (NEGATIVE) Urine RBC (0-2/HPF) Urine WBC (0-5/HPF) Ur Epithelial Cells (NONE-FEW) Amorphous Sediment (NEGATIVE) Urine Bacteria (NEGATIVE) Urine Mucus (NONE-MOD) Urine HCG, Qual (NEGATIVE) H. pylori IgG Antibody NEGATIVE (NEG) 07/17/18 07/17/18 07/18/18 Range/Units 19:16 19:16 06:00 WBC 7.47 (4.0-11.0) K/uL RBC 5.12 (4.30-5.90) M/uL Hgb 13.0 (12.0-16.0) g/dL Hct 41.8 (36.0-46.0) % MCV 81.6 (80.0-98.0) fL MCH 25.4 L (27.0-32.0) pg MCHC 31.1 (31.0-37.0) g/dL RDW Std Deviation 49.0 (28.0-62.0) fl RDW Coeff of Lisa 17 H (11.0-15.0) % Plt Count 216 (150-400) K/uL MPV 11.80 (7.40-12.00) fL Neut % (Auto) 46.6 L (48.0-80.0) % Lymph % (Auto) 36.9 (16.0-40.0) % [place] % (Auto) 8.6 (0.0-15.0) % Eos % (Auto) 7.1 H (0.0-7.0) % Baso % (Auto) 0.8 (0.0-1.5) % Neut # (Auto) 3.5 (1.4-5.7) K/uL Lymph # (Auto) 2.8 H (0.6-2.4) K/uL [place] # (Auto) 0.6 (0.0-0.8) K/uL Eos # (Auto) 0.5 (0.0-0.7) K/uL Baso # (Auto) 0.1 (0.0-0.1) K/uL Nucleated RBC % 0.0 /100WBC Nucleated RBCs # 0 K/uL Sodium (136-145) mmol/L Potassium (3.5-5.1) mmol/L Chloride (98-107) mmol/L Carbon Dioxide (21.0-32.0) mmol/L BUN (7.0-18.0) mg/dL Creatinine (0.6-1.0) mg/dL Est Cr Clr Drug Dosing mL/min Estimated GFR (MDRD) ml/min Glucose (74-106) mg/dL Calcium (8.5-10.1) mg/dL Total Bilirubin (0.2-1.0) mg/dL AST (15-37) IU/L ALT (14-63) IU/L Alkaline Phosphatase (46-116) U/L Total Protein (6.4-8.2) g/dL Albumin (3.4-5.0) g/dL Globulin (2.6-4.0) g/dL Albumin/Globulin Ratio (0.9-1.6) Lipase (73-393) U/L Urine Color YELLOW Urine Appearance SLT CLOUDY Urine pH 7.0 (5.0-8.0) Ur Specific [place] 1.015 (1.001-1.035) Urine Protein TRACE H (NEGATIVE) mg/dL Urine Glucose (UA) NEGATIVE (NEGATIVE) mg/dL Urine Ketones NEGATIVE (NEGATIVE) mg/dL Urine Occult Blood NEGATIVE (NEGATIVE) Urine Nitrite NEGATIVE (NEGATIVE) Urine Bilirubin NEGATIVE (NEGATIVE) Urine Urobilinogen 1.0 (<2.0) EU/dL Ur Leukocyte Esterase NEGATIVE (NEGATIVE) Urine RBC 0-1 (0-2/HPF) Urine WBC 0-2 (0-5/HPF) Ur Epithelial Cells MODERATE (NONE-FEW) Amorphous Sediment MODERATE (NEGATIVE) Urine Bacteria FEW (NEGATIVE) Urine Mucus MODERATE (NONE-MOD) Urine HCG, Qual NEGATIVE (NEGATIVE) H. pylori IgG Antibody (NEG) 07/18/18 Range/Units 06:00 WBC (4.0-11.0) K/uL RBC (4.30-5.90) M/uL Hgb (12.0-16.0) g/dL Hct (36.0-46.0) % MCV (80.0-98.0) fL MCH (27.0-32.0) pg MCHC (31.0-37.0) g/dL RDW Std Deviation (28.0-62.0) fl RDW Coeff of Lisa (11.0-15.0) % Plt Count (150-400) K/uL MPV (7.40-12.00) fL Neut % (Auto) (48.0-80.0) % Lymph % (Auto) (16.0-40.0) % [place] % (Auto) (0.0-15.0) % Eos % (Auto) (0.0-7.0) % Baso % (Auto) (0.0-1.5) % Neut # (Auto) (1.4-5.7) K/uL Lymph # (Auto) (0.6-2.4) K/uL [place] # (Auto) (0.0-0.8) K/uL Eos # (Auto) (0.0-0.7) K/uL Baso # (Auto) (0.0-0.1) K/uL Nucleated RBC % /100WBC Nucleated RBCs # K/uL Sodium 143 (136-145) mmol/L Potassium 3.6 (3.5-5.1) mmol/L Chloride 108 H (98-107) mmol/L Carbon Dioxide 28.0 (21.0-32.0) mmol/L BUN 12 (7.0-18.0) mg/dL Creatinine 1.0 (0.6-1.0) mg/dL Est Cr Clr Drug Dosing 63.88 mL/min Estimated GFR (MDRD) > 60.0 ml/min Glucose 96 (74-106) mg/dL Calcium 8.2 L (8.5-10.1) mg/dL Total Bilirubin 0.9 (0.2-1.0) mg/dL AST 62 H (15-37) IU/L ALT 116 H (14-63) IU/L Alkaline Phosphatase 88 (46-116) U/L Total Protein 6.4 (6.4-8.2) g/dL Albumin 2.9 L (3.4-5.0) g/dL Globulin 3.5 (2.6-4.0) g/dL Albumin/Globulin Ratio 0.8 L (0.9-1.6) Lipase (73-393) U/L Urine Color Urine Appearance Urine pH (5.0-8.0) Ur Specific [place] (1.001-1.035) Urine Protein (NEGATIVE) mg/dL Urine Glucose (UA) (NEGATIVE) mg/dL Urine Ketones (NEGATIVE) mg/dL Urine Occult Blood (NEGATIVE) Urine Nitrite (NEGATIVE) Urine Bilirubin (NEGATIVE) Urine Urobilinogen (<2.0) EU/dL Ur Leukocyte Esterase (NEGATIVE) Urine RBC (0-2/HPF) Urine WBC (0-5/HPF) Ur Epithelial Cells (NONE-FEW) Amorphous Sediment (NEGATIVE) Urine Bacteria (NEGATIVE) Urine Mucus (NONE-MOD) Urine HCG, Qual (NEGATIVE) H. pylori IgG Antibody (NEG) Med Orders - Current: Current Medications Buspirone HCl (Buspar) 45 mg PO DAILY [facility] Sodium Chloride (Normal Saline) 1,000 mls @ 125 mls/hr IV ASDIRECTED [facility] Last Admin: 07/18/18 07:23 Dose: 125 mls/hr Ondansetron HCl (Zofran) 4 mg IVPUSH Q4H PRN PRN Reason: Nausea Last Admin: 07/18/18 09:23 Dose: 4 mg Pantoprazole Sodium (Protonix Iv) 40 mg IV Q12HR [facility] Last Admin: 07/18/18 09:17 Dose: 40 mg Sertraline HCl (Zoloft) 150 mg PO DAILY [facility] Last Admin: 07/18/18 09:24 Dose: 150 mg Discontinued Medications Buspirone HCl (Buspar) 10 mg PO DAILY [facility] Sodium Chloride (Normal Saline) 1,000 mls @ 999 mls/hr IV BOLUS ONE Stop: 07/17/18 17:10 Last Infusion: 07/17/18 16:31 Dose: 250 mls/hr Ketorolac Tromethamine (Toradol) 30 mg IVPUSH ONETIME ONE Stop: 07/17/18 18:14 Last Admin: 07/17/18 18:29 Dose: 30 mg Labetalol HCl (Normodyne) 20 mg IVPUSH NOW ONE; Protocol Stop: 07/17/18 20:13 Last Admin: 07/17/18 20:22 Dose: 20 mg Labetalol HCl (Normodyne) Confirm Administered Dose 100 mg .ROUTE .STK-MED ONE Stop: 07/17/18 20:21 Last Admin: 07/17/18 20:22 Dose: Not Given Morphine Sulfate (Morphine) 2 mg IVPUSH ONETIME ONE Stop: 07/17/18 19:29 Last Admin: 07/17/18 19:33 Dose: 2 mg Morphine Sulfate (Morphine) 2 mg IVPUSH Q4H PRN PRN Reason: Pain (severe 7-10) Stop: 07/18/18 22:27 Morphine Sulfate (Morphine) 2 mg IVPUSH Q4H PRN PRN Reason: Pain (severe 7-10) Stop: 07/18/18 22:27 Last Admin: 07/18/18 09:24 Dose: 2 mg Ondansetron HCl (Zofran) 4 mg IVPUSH ONETIME ONE Stop: 07/17/18 16:11 Last Admin: 07/17/18 16:31 Dose: 4 mg Ondansetron HCl (Zofran) 4 mg IVPUSH ONETIME ONE Stop: 07/17/18 19:29 Last Admin: 07/17/18 19:34 Dose: 4 mg Pantoprazole Sodium (Protonix Iv) 80 mg IVPUSH .BOLUS ONE Stop: 07/17/18 16:16 Last Admin: 07/17/18 16:31 Dose: 80 mg - Exam General: Alert, Oriented, Cooperative, No Acute Distress Lungs: Clear to Auscultation, Normal Respiratory Effort Cardiovascular: Regular Rate, Regular Rhythm GI/Abdominal Exam: Normal Bowel Sounds, Soft, No Organomegaly, Tender (RUQ, mild tenderness) Extremities: Normal Inspection, Normal Range of Motion, Non-Tender, No Pedal Edema Neurological: No New Focal Deficit Psy/Mental Status: Alert, Normal Affect, Normal Mood - Problem List & Annotations (1) Dehydration SNOMED Code(s): 75235727 Code(s): E86.0 - DEHYDRATION Status: Acute Current Visit: Yes (2) Diarrhea SNOMED Code(s): 10050467 Code(s): R19.7 - DIARRHEA, UNSPECIFIED Status: Acute Current Visit: Yes Qualifiers: Diarrhea type: unspecified type Qualified Code(s): R19.7 - Diarrhea, unspecified (3) Gastroenteritis SNOMED Code(s): 14235002 Code(s): K52.9 - NONINFECTIVE GASTROENTERITIS AND COLITIS, UNSPECIFIED Status: Acute Current Visit: Yes - Problem List Review Problem List Initiated/Reviewed/Updated: No - Plan Plan:: 32 yo female admitted with gastroenteritis. 1. Gastroenteritis: Mild improvement. Continue IV fluids and Protonix. Stool studies spending. Advance diet as tolerated, bland soft. Will arrange follow up with general surgeon for EGD. 2. Hypertension: Elevated, will restart home Labetolol PO 3. Depression: Continue Sertraline and Buspar. VTE prophylaxis: SCDs Dispo: 1 day
[2018-07-18] MEDS: Labetalol 100 MG Tab PO SCH ×2 (11:38→20:58)
[2018-07-18] MEDS: busPIRone 5 MG Tab PO SCH (11:40)
[2018-07-19] MEDS ORDERED: traMADol 50 MG Tab PO PRN (03:12)
[2018-07-19] MEDS ORDERED: traMADol 50 MG Tab ONE (03:20)
[2018-07-19 05:55] LABS: CHLORIDE,CL 109 mmol/L (98-107); SODIUM,NA 144 mmol/L (136-145)
[2018-07-19] MEDS: Sodium Chloride 0.9% 1,000 ML IV SCH (07:58)
[2018-07-19] MEDS: Pantoprazole 40 MG Vial IV SCH (08:21)
[2018-07-19] MEDS: Sertraline 50 MG Tab PO SCH (08:50)
[2018-07-19] MEDS: Labetalol 100 MG Tab PO SCH (08:50)
[2018-07-19] MEDS: busPIRone 5 MG Tab PO SCH (08:51)
--- NOTE | 2018-07-19 12:48 | PCM.DCSUM1 ---
Discharge Summary - Hospital Course Brief History: 32 yo female who presents to the ED with complaints of abdominal pain for past 11 days. Patient reports right sided abdominal pain that occurs after she eats. She then vomits whatever she eats. She also reports watery diarrhea. Today she had bright red blood in her vomit. She denies any fevers or blood in her stool. She was seen in the ED two days ago for same symptoms she had a normal CT abdomen and was discharged home. IN the ED she had RUQ performed which is negative. Diagnosis: Stroke: No - Discharge Data Discharge Date: 07/19/18 Discharge Disposition: Home, Self-Care 01 Condition: Good - Discharge Diagnosis/Problem(s) (1) Dehydration SNOMED Code(s): 73274008 ICD Code: E86.0 - DEHYDRATION Status: Acute (2) Diarrhea SNOMED Code(s): 55836792 ICD Code: R19.7 - DIARRHEA, UNSPECIFIED Status: Acute Qualifiers: Diarrhea type: unspecified type Qualified Code(s): R19.7 - Diarrhea, unspecified (3) Gastroenteritis SNOMED Code(s): 29209965 ICD Code: K52.9 - NONINFECTIVE GASTROENTERITIS AND COLITIS, UNSPECIFIED Status: Acute - Patient Instructions Diet: GI Soft/Low Residue/Low Fiber (low fat) Activity: As Tolerated Showering/Bathing: May Shower Notify Provider of: Fever, Increased Pain, Swelling and Redness, Drainage, Nausea and/or Vomiting Other/Special Instructions: NO NSAIDS (No motrin, aleve, aspirin, ibuprofen, and Advil.) Tylenol only. - Discharge Plan *PRESCRIPTION DRUG MONITORING PROGRAM REVIEWED*: Not Applicable *COPY OF PRESCRIPTION DRUG MONITORING REPORT IN PATIENT NILE: Not Applicable Prescriptions/Med Rec: Pantoprazole Sodium [Protonix] 40 mg PO BID #60 tablet. Sucralfate [Carafate] 1 gm PO QIDACANDBED #120 tablet Home Medications: Home Meds busPIRone [Buspar] 45 mg PO DAILY 07/15/18 [History] Ondansetron [Zofran ODT] 4 mg PO ASDIRECTED PRN 07/17/18 [History] Promethazine HCl [Phenergan] 25 mg RECTAL ASDIRECTED PRN 07/17/18 [History] Sertraline HCl 150 mg PO DAILY 07/17/18 [History] Labetalol [Normodyne] 400 mg PO BID 07/18/18 [History] Pantoprazole Sodium [Protonix] 40 mg PO BID #60 tablet. 07/19/18 [Rx] Sucralfate [Carafate] 1 gm PO QIDACANDBED #120 tablet 07/19/18 [Rx] Oxygen Therapy Mode: Room Air Patient Handouts: Viral Gastroenteritis, Adult, Otbe-fc-[place], Sucralfate tablets, Pantoprazole tablets Referrals: Ancelmo Parra MD [Physician] - 08/06/18 10:00 am Lynn Wang DO [Resident] - 07/31/18 1:30 am - Discharge Summary/Plan Comment DC Time >30 min.: No Discharge Summary/Plan Comment: Discharge Diagnoses: Gastroenteritis GERD Keli was admitted secondary to nausea along with abdominal pain, all imaging returned negative. SHe did have episode of hematemesis. After admission, she had no further hematemesis. SHe was kept on Protonix q12h IV and diet was slowly advanced to soft bland today. After eating she has dark black stool, unwitnessed. I spoke with Dr Prara General surgeon, who felt since she was stable, VS and Hgb, she would be treated with Protonix and Carafate and come to see him as an outpatient. She felt good with this. She was encouraged to not drink any alcohol, keep a bland diet and no NSAID usage at all. Tylenol would be the only thing for pain. SHe verbalized understanding of this. She will be sent home with Carafate x1 month as well as Protonix BID x 1 month. She is to return to ED or clinic if concerns should arise. She was arranged with PCP and Dr Parra for follow up. - General Info Date of Service: 07/19/18 Admission Dx/Problem (Free Text: Admission Diagnosis/Problem Admission Diagnosis/Problem Gastroenteritis Subjective Update: DOing well today, pain is diminished and she is eager to eat more. No chest pain or SOB Functional Status: Reports: Pain Controlled, Tolerating Diet, Ambulating - Review of Systems General: Reports: No Symptoms. Denies: Fever, Weakness Pulmonary: Reports: No Symptoms. Denies: Shortness of Breath Cardiovascular: Reports: No Symptoms, Chest Pain Gastrointestinal: Reports: No Symptoms. Denies: Abdominal Pain, Nausea Musculoskeletal: Reports: No Symptoms Skin: Reports: No Symptoms Psychiatric: Reports: No Symptoms - Patient Data Vitals - Most Recent: Last Vital Signs Temp 98 F 07/19/18 11:29 Pulse 64 07/19/18 11:29 Resp 18 07/19/18 11:29 BP 136/84 07/19/18 11:29 Pulse Ox 95 07/19/18 11:29 Weight - Most Recent: 100.425 kg I&O - Last 24 hours: Intake & Output 07/18/18 07/19/18 07/19/18 22:59 06:59 14:59 Intake Total 2059 1993 Output Total 0 1550 Balance 510 444 Lab Results - Last 24 hrs: Laboratory Results - last 24 hr 07/19/18 07/19/18 Range/Units 04:45 04:45 WBC 6.09 (4.0-11.0) K/uL RBC 5.05 (4.30-5.90) M/uL Hgb 12.7 (12.0-16.0) g/dL Hct 41.5 (36.0-46.0) % MCV 82.2 (80.0-98.0) fL MCH 25.1 L (27.0-32.0) pg MCHC 30.6 L (31.0-37.0) g/dL RDW Std Deviation 49.5 (28.0-62.0) fl RDW Coeff of Lisa 17 H (11.0-15.0) % Plt Count 207 (150-400) K/uL MPV 12.10 H (7.40-12.00) fL Neut % (Auto) 49.5 (48.0-80.0) % Lymph % (Auto) 36.8 (16.0-40.0) % [place] % (Auto) 7.2 (0.0-15.0) % Eos % (Auto) 5.7 (0.0-7.0) % Baso % (Auto) 0.8 (0.0-1.5) % Neut # (Auto) 3.0 (1.4-5.7) K/uL Lymph # (Auto) 2.2 (0.6-2.4) K/uL [place] # (Auto) 0.4 (0.0-0.8) K/uL Eos # (Auto) 0.4 (0.0-0.7) K/uL Baso # (Auto) 0.1 (0.0-0.1) K/uL Nucleated RBC % 0.0 /100WBC Nucleated RBCs # 0 K/uL Sodium 144 (136-145) mmol/L Potassium 3.8 (3.5-5.1) mmol/L Chloride 109 H (98-107) mmol/L Carbon Dioxide 25.3 (21.0-32.0) mmol/L BUN 7 (7.0-18.0) mg/dL Creatinine 0.8 (0.6-1.0) mg/dL Est Cr Clr Drug Dosing 79.85 mL/min Estimated GFR (MDRD) > 60.0 ml/min Glucose 80 (74-106) mg/dL Calcium 8.5 (8.5-10.1) mg/dL Total Bilirubin 1.2 H (0.2-1.0) mg/dL AST 66 H (15-37) IU/L ALT 111 H (14-63) IU/L Alkaline Phosphatase 70 (46-116) U/L Total Protein 6.2 L (6.4-8.2) g/dL Albumin 2.8 L (3.4-5.0) g/dL Globulin 3.4 (2.6-4.0) g/dL Albumin/Globulin Ratio 0.8 L (0.9-1.6) BLANQUITA Results - Last 24 hrs: Microbiology 07/18/18 09:25 Campylobacter Antigen Assay - Final Stool / Feces NEGATIVE CAMPYLOBACTER AG Shiga Toxin I - Final NEGATIVE FOR SHIGA TOXIN 1 Shiga Toxin II - Final NEGATIVE FOR SHIGA TOXIN 2 Med Orders - Current: Current Medications Buspirone HCl (Buspar) 45 mg PO DAILY [facility] Last Admin: 07/19/18 08:51 Dose: 45 mg Sodium Chloride (Normal Saline) 1,000 mls @ 125 mls/hr IV ASDIRECTED [facility] Last Admin: 07/19/18 07:58 Dose: 125 mls/hr Labetalol HCl (Normodyne) 400 mg PO BID [facility] Last Admin: 07/19/18 08:50 Dose: 400 mg Ondansetron HCl (Zofran) 4 mg IVPUSH Q4H PRN PRN Reason: Nausea Last Admin: 07/18/18 14:49 Dose: 4 mg Pantoprazole Sodium (Protonix Iv) 40 mg IV Q12HR [facility] Last Admin: 07/19/18 08:21 Dose: 40 mg Sertraline HCl (Zoloft) 150 mg PO DAILY [facility] Last Admin: 07/19/18 08:50 Dose: 150 mg Tramadol HCl (Ultram) 50 mg PO Q6H PRN PRN Reason: Pain Last Admin: 07/19/18 04:33 Dose: 50 mg Discontinued Medications Buspirone HCl (Buspar) 10 mg PO DAILY [facility] Last Admin: 07/18/18 11:43 Dose: Not Given Sodium Chloride (Normal Saline) 1,000 mls @ 999 mls/hr IV BOLUS ONE Stop: 07/17/18 17:10 Last Infusion: 07/17/18 16:31 Dose: 250 mls/hr Ketorolac Tromethamine (Toradol) 30 mg IVPUSH ONETIME ONE Stop: 07/17/18 18:14 Last Admin: 07/17/18 18:29 Dose: 30 mg Labetalol HCl (Normodyne) 20 mg IVPUSH NOW ONE; Protocol Stop: 07/17/18 20:13 Last Admin: 07/17/18 20:22 Dose: 20 mg Labetalol HCl (Normodyne) Confirm Administered Dose 100 mg .ROUTE .STK-MED ONE Stop: 07/17/18 20:21 Last Admin: 07/17/18 20:22 Dose: Not Given Morphine Sulfate (Morphine) 2 mg IVPUSH ONETIME ONE Stop: 07/17/18 19:29 Last Admin: 07/17/18 19:33 Dose: 2 mg Morphine Sulfate (Morphine) 2 mg IVPUSH Q4H PRN PRN Reason: Pain (severe 7-10) Stop: 07/18/18 22:27 Morphine Sulfate (Morphine) 2 mg IVPUSH Q4H PRN PRN Reason: Pain (severe 7-10) Stop: 07/18/18 22:27 Last Admin: 07/18/18 09:24 Dose: 2 mg Ondansetron HCl (Zofran) 4 mg IVPUSH ONETIME ONE Stop: 07/17/18 16:11 Last Admin: 07/17/18 16:31 Dose: 4 mg Ondansetron HCl (Zofran) 4 mg IVPUSH ONETIME ONE Stop: 07/17/18 19:29 Last Admin: 07/17/18 19:34 Dose: 4 mg Pantoprazole Sodium (Protonix Iv) 80 mg IVPUSH .BOLUS ONE Stop: 07/17/18 16:16 Last Admin: 07/17/18 16:31 Dose: 80 mg Tramadol HCl (Ultram) Confirm Administered Dose 50 mg .ROUTE .STK-MED ONE Stop: 07/19/18 03:21 Last Admin: 07/19/18 03:33 Dose: Not Given - Exam General: Reports: Alert, Oriented Lungs: Reports: Clear to Auscultation, Normal Respiratory Effort Cardiovascular: Reports: Regular Rate, Regular Rhythm GI/Abdominal Exam: Normal Bowel Sounds, Soft, Non-Tender, No Distention Extremities: Normal Inspection, Normal Range of Motion, Non-Tender Psy/Mental Status: Reports: Alert, Normal Affect, Normal Mood
== END 2018-07-19 13:45 | disposition home or self-care (01) ==
LOC: MW.ED 15:41 → MW.MS 20:38
PROVIDERS: ADMIT Internal Medicine; ATTEND Internal Medicine
DX: K52.9 Noninfective gastroenteritis and colitis, unspecified (principal); E86.0 Dehydration; I10 Essential (primary) hypertension; K21.9 Gastro-esophageal reflux disease without esophagitis; F32.9 Major depressive disorder, single episode, unspecified; Z91.048 Other nonmedicinal substance allergy status; Z79.899 Other long term (current) drug therapy
CPT/HCPCS: 36415; 76705; 80053; 81001; 81025; 83690; 85025; 86677; 87046; 87899; 96361; 96374; 96375; 96376; 99285; A9270; C9113; G0378; J1885; J2270; J2405; J3490; J7040; 99283

== ENCOUNTER 2019-05-22 09:00 | Emergency (ER) | payer MEDICAID, OTHER ==
--- NOTE | 2019-05-22 10:04 | EDM.PDOC ---
ED HPI GENERAL MEDICAL PROBLEM - General Chief Complaint: Genitourinary Problem Stated Complaint: POSS KIDNEY STONE Time Seen by Provider: 05/22/19 09:58 Source of Information: Reports: Patient History Limitations: Reports: No Limitations - History of Present Illness INITIAL COMMENTS - FREE TEXT/NARRATIVE: HISTORY AND PHYSICAL: History of present illness: Patient is a 33-year-old female presents to the ED with complaint of possible UTI or kidney stone. Patient states for the past week she has been having frequent urination and pain when she pees. She states 3 days ago she developed right sided back pain that radiates to her right lower abdomen. Pain comes and goes. She states she did have a fever of 102F yesterday as well as some nausea. She denies vomiting or diarrhea. She denies cough, chest pain, shortness of breath. Review of systems: As per history of present illness and below otherwise all systems reviewed and negative. Past medical history: As per history of present illness and as reviewed below otherwise noncontributory. Surgical history: As per history of present illness and as reviewed below otherwise noncontributory. Social history: No reported history of drug or alcohol abuse. Family history: As per history of present illness and as reviewed below otherwise noncontributory. Physical exam: General: Patient sitting comfortably in no acute distress and nontoxic appearing HEENT: Atraumatic, normocephalic, pupils reactive, negative for conjunctival pallor or scleral icterus, mucous membranes moist, throat clear, neck supple, nontender, trachea midline. No meningeal signs. Lungs: Clear to auscultation, breath sounds equal bilaterally, chest nontender. Heart: S1S2, regular, negative for clicks, rubs, or overt murmur. Abdomen: Soft, nondistended, nontender. Negative for masses or hepatosplenomegaly. Right costovertebral tenderness. No rigidity, rebound, guarding. Pelvis: Stable nontender. Genitourinary: Deferred. Rectal: Deferred. Extremities: Atraumatic, negative for cords or calf pain. Neurovascular unremarkable. Neuro: Awake, alert, oriented. Cranial nerves II through XII unremarkable. Cerebellum unremarkable. Motor and sensory unremarkable throughout. Exam nonfocal. Notes: UA is wnl, no RBCs or bacteria. Labs are unremarkable, patient has history of elevated AST and ALT secondary to hepatitis C diagnosis. She see's a PCP in [place] for this. Back/flank pain likely muscle related but patient advised to return to ED if new or worsening symptoms. Diagnostics: UA, CBC, CMP Therapeutics: none Prescriptions: Diclofenac Impression: Flank pain Plan: Take diclofenac as prescribed Follow up with primary care provider Return to ED as needed as discussed Definitive disposition and diagnosis as appropriate pending reevaluation and review of above. right flank Pain Score (Numeric/FACES): 8 - Related Data Allergies Allergy/AdvReac Type Severity Reaction Status Date / Time adhesive Allergy Mild Rash Verified 05/22/19 09:27 Home Meds: Home Meds busPIRone [Buspar] 45 mg PO DAILY 07/15/18 [History] Sertraline HCl 150 mg PO DAILY 07/17/18 [History] Labetalol [Normodyne] 400 mg PO BID 07/18/18 [History] Sucralfate [Carafate] 1 gm PO QIDACANDBED #120 tablet 07/19/18 [Rx] Diclofenac Sodium [Voltaren] 75 mg PO BIDMEALS #20 tab.cr 05/22/19 [Rx] Past Medical History HEENT History: Reports: None Cardiovascular History: Reports: Hypertension Respiratory History: Reports: None Gastrointestinal History: Reports: GERD Genitourinary History: Reports: Renal Calculus, UTI, Recurrent Other Genitourinary History: renal stents MAPPER History: Reports: None Musculoskeletal History: Reports: None Neurological History: Reports: None Psychiatric History: Reports: None Endocrine/Metabolic History: Reports: None Hematologic History: Reports: None Immunologic History: Reports: None Oncologic (Cancer) History: Reports: None Dermatologic History: Reports: None - Infectious Disease History Infectious Disease History: Reports: None - Past Surgical History Head Surgeries/Procedures: Reports: None HEENT Surgical History: Reports: None Cardiovascular Surgical History: Reports: None Respiratory Surgical History: Reports: None GI Surgical History: Reports: Cholecystectomy Female Surgical History: Reports: Section, Tubal Ligation, Other ( See Below) Other Female Surgeries/Procedures: kidney stents Endocrine Surgical History: Reports: None Neurological Surgical History: Reports: None Musculoskeletal Surgical History: Reports: None Oncologic Surgical History: Reports: None Dermatological Surgical History: Reports: None Social & Family History - Family History Family Medical History: Noncontributory - Tobacco Use Smoking Status *Q: Never Smoker Second Hand Smoke Exposure: No - Caffeine Use Caffeine Use: Reports: Coffee, Energy Drinks, Soda, Tea Other Caffeine Use: rare caffeine use - Recreational Drug Use Recreational Drug Use: No ED ROS GENERAL - Review of Systems Review Of Systems: Comprehensive ROS is negative, except as noted in HPI. ED EXAM, RENAL/ - Physical Exam Exam: See Below (see dictation) Course - Vital Signs Last Recorded V/S: Last Vital Signs Temp 97.6 F 05/22/19 11:58 Pulse 79 05/22/19 11:58 Resp 16 05/22/19 11:08 BP 172/110 H 05/22/19 11:58 Pulse Ox 100 05/22/19 11:58 - Orders/Labs/Meds Labs: Laboratory Tests 05/22/19 05/22/19 05/22/19 Range/Units 09:32 09:32 10:11 WBC 5.73 (4.0-11.0) K/uL RBC 4.65 (4.30-5.90) M/uL Hgb 12.1 (12.0-16.0) g/dL Hct 38.8 (36.0-46.0) % MCV 83.4 (80.0-98.0) fL MCH 26.0 L (27.0-32.0) pg MCHC 31.2 (31.0-37.0) g/dL RDW Std Deviation 52.6 (28.0-62.0) fl RDW Coeff of Lisa 17 H (11.0-15.0) % Plt Count 187 (150-400) K/uL MPV 12.10 H (7.40-12.00) fL Neut % (Auto) 54.8 (48.0-80.0) % Lymph % (Auto) 26.5 (16.0-40.0) % Bates % (Auto) 11.9 (0.0-15.0) % Eos % (Auto) 6.3 (0.0-7.0) % Baso % (Auto) 0.5 (0.0-1.5) % Neut # (Auto) 3.1 (1.4-5.7) K/uL Lymph # (Auto) 1.5 (0.6-2.4) K/uL Bates # (Auto) 0.7 (0.0-0.8) K/uL Eos # (Auto) 0.4 (0.0-0.7) K/uL Baso # (Auto) 0.0 (0.0-0.1) K/uL Nucleated RBC % 0.0 /100WBC Nucleated RBCs # 0 K/uL Sodium (136-145) mmol/L Potassium (3.5-5.1) mmol/L Chloride (98-107) mmol/L Carbon Dioxide (21.0-32.0) mmol/L BUN (7.0-18.0) mg/dL Creatinine (0.6-1.0) mg/dL Est Cr Clr Drug Dosing mL/min Estimated GFR (MDRD) ml/min Glucose (74-106) mg/dL Calcium (8.5-10.1) mg/dL Total Bilirubin (0.2-1.0) mg/dL AST (15-37) IU/L ALT (14-63) IU/L Alkaline Phosphatase (46-116) U/L Total Protein (6.4-8.2) g/dL Albumin (3.4-5.0) g/dL Globulin (2.6-4.0) g/dL Albumin/Globulin Ratio (0.9-1.6) Urine Color YELLOW Urine Appearance CLEAR Urine pH 6.5 (5.0-8.0) Ur Specific [place] 1.025 (1.001-1.035) Urine Protein NEGATIVE (NEGATIVE) mg/dL Urine Glucose (UA) NEGATIVE (NEGATIVE) mg/dL Urine Ketones NEGATIVE (NEGATIVE) mg/dL Urine Occult Blood NEGATIVE (NEGATIVE) Urine Nitrite NEGATIVE (NEGATIVE) Urine Bilirubin NEGATIVE (NEGATIVE) Urine Urobilinogen 1.0 (<2.0) EU/dL Ur Leukocyte Esterase NEGATIVE (NEGATIVE) Urine HCG, Qual NEGATIVE (NEGATIVE) 05/22/19 Range/Units 10:11 WBC (4.0-11.0) K/uL RBC (4.30-5.90) M/uL Hgb (12.0-16.0) g/dL Hct (36.0-46.0) % MCV (80.0-98.0) fL MCH (27.0-32.0) pg MCHC (31.0-37.0) g/dL RDW Std Deviation (28.0-62.0) fl RDW Coeff of Lisa (11.0-15.0) % Plt Count (150-400) K/uL MPV (7.40-12.00) fL Neut % (Auto) (48.0-80.0) % Lymph % (Auto) (16.0-40.0) % Bates % (Auto) (0.0-15.0) % Eos % (Auto) (0.0-7.0) % Baso % (Auto) (0.0-1.5) % Neut # (Auto) (1.4-5.7) K/uL Lymph # (Auto) (0.6-2.4) K/uL Bates # (Auto) (0.0-0.8) K/uL Eos # (Auto) (0.0-0.7) K/uL Baso # (Auto) (0.0-0.1) K/uL Nucleated RBC % /100WBC Nucleated RBCs # K/uL Sodium 141 (136-145) mmol/L Potassium 4.7 (3.5-5.1) mmol/L Chloride 106 (98-107) mmol/L Carbon Dioxide 27.1 (21.0-32.0) mmol/L BUN 14 (7.0-18.0) mg/dL Creatinine 0.7 (0.6-1.0) mg/dL Est Cr Clr Drug Dosing 90.41 mL/min Estimated GFR (MDRD) > 60.0 ml/min Glucose 91 (74-106) mg/dL Calcium 8.6 (8.5-10.1) mg/dL Total Bilirubin 1.0 (0.2-1.0) mg/dL AST 119 H (15-37) IU/L ALT 180 H (14-63) IU/L Alkaline Phosphatase 83 (46-116) U/L Total Protein 6.8 (6.4-8.2) g/dL Albumin 3.1 L (3.4-5.0) g/dL Globulin 3.7 (2.6-4.0) g/dL Albumin/Globulin Ratio 0.8 L (0.9-1.6) Urine Color Urine Appearance Urine pH (5.0-8.0) Ur Specific [place] (1.001-1.035) Urine Protein (NEGATIVE) mg/dL Urine Glucose (UA) (NEGATIVE) mg/dL Urine Ketones (NEGATIVE) mg/dL Urine Occult Blood (NEGATIVE) Urine Nitrite (NEGATIVE) Urine Bilirubin (NEGATIVE) Urine Urobilinogen (<2.0) EU/dL Ur Leukocyte Esterase (NEGATIVE) Urine HCG, Qual (NEGATIVE) Departure - Departure Time of Disposition: 11:07 Disposition: Home, Self-Care 01 Condition: Good Clinical Impression: Flank pain - Discharge Information Prescriptions: Diclofenac Sodium [Voltaren] 75 mg PO BIDMEALS #20 tab.cr Instructions: Flank Pain, Adult Referrals: PCP,None [Primary Care Provider] - Forms: ED Department Discharge Additional Instructions: The following information is given to patients seen in the emergency department who are being discharged to home. This information is to outline your options for follow-up care. We provide all patients seen in our emergency department with a follow-up referral. The need for follow-up, as well as the timing and circumstances, are variable depending upon the specifics of your emergency department visit. If you don't have a primary care physician on staff, we will provide you with a referral. We always advise you to contact your personal physician following an emergency department visit to inform them of the circumstance of the visit and for follow-up with them and/or the need for any referrals to a consulting specialist. The emergency department will also refer you to a specialist when appropriate. This referral assures that you have the opportunity for follow-up care with a specialist. All of these measure are taken in an effort to provide you with optimal care, which includes your follow-up. Under all circumstances we always encourage you to contact your private physician who remains a resource for coordinating your care. When calling for follow-up care, please make the office aware that this follow-up is from your recent emergency room visit. If for any reason you are refused follow-up, please contact the [facility] Emergency Department at and asked to speak to the emergency department charge nurse. [facility] [address] [place] [id number] [address] Take diclofenac as prescribed Follow up with primary care provider Return to ED as needed as discussed Sepsis Event Note - Evaluation Sepsis Screening Result: No Definite Risk - Focused Exam Date Exam was Performed: 05/30/19 Time Exam was Performed: 12:30
[2019-05-22 10:48] LABS: BLOOD UREA NITROGEN,BUN 14 mg/dL (7.0-18.0); CARBON DIOXIDE,CO2 27.1 mmol/L (21.0-32.0); CHLORIDE,CL 106 mmol/L (98-107); GLUCOSE RANDOM 91 mg/dL (74-106); POTASSIUM,K 4.7 mmol/L (3.5-5.1); SODIUM,NA 141 mmol/L (136-145)
== END 2019-05-22 12:02 | disposition home or self-care (01) ==
LOC: MW.ED 09:00
DX: R10.9 Unspecified abdominal pain (principal); I10 Essential (primary) hypertension; K21.9 Gastro-esophageal reflux disease without esophagitis; Z79.899 Other long term (current) drug therapy; Z91.09 Other allergy status, other than to drugs and biological substances
CPT/HCPCS: 36415; 80053; 81003; 81025; 85025; 99283; 99284

== ENCOUNTER 2020-11-01 12:39 | Emergency (ER) | payer MEDICAID ==
[2020-11-01] MEDS ORDERED: Sodium Chloride 0.9% 1,000 ML IV ONE (14:23)
[2020-11-01] MEDS ORDERED: Ketorolac 30 MG/ML SDV IVPUSH ONE (14:26)
--- NOTE | 2020-11-01 14:46 | EDM.PDOC ---
ED HPI GENERAL MEDICAL PROBLEM - General Chief Complaint: Abdominal Pain Stated Complaint: PAIN RIGHT UP UNDER RIB Time Seen by Provider: 11/01/20 13:30 Source of Information: Reports: Patient History Limitations: Reports: No Limitations - History of Present Illness INITIAL COMMENTS - FREE TEXT/NARRATIVE: HISTORY AND PHYSICAL: History of present illness: Patient is a 35-year-old female who presents to the emergency room with complaints of her right lower chest wall pain that has been ongoing but intermittent over the past 3 to 4 months. She states that the pain is worse in the morning and with coughing and/or taking deep breaths. She has had some mild dysuria although has not thought much of it. Patient denies any fever, chills, headache, change in vision, syncope or near syncope. Denies any chest pain, back pain, shortness of breath or cough. Denies any nausea, vomiting, diarrhea, constipation. Has not noted any blood in urine or stool. Patient has been eating and drinking appropriately. Patient has had her gallbladder removed 15+ years ago. Review of systems: As per history of present illness and below otherwise all systems reviewed and negative. Past medical history: As per history of present illness and as reviewed below otherwise noncontributory. Surgical history: As per history of present illness and as reviewed below otherwise noncontributor y. Social history: See social history for further information Family history: As per history of present illness and as reviewed below otherwise noncontributory. Physical exam: General: Well developed and well nourished. Alert and orientated x 3. Nontoxic in appearance and in no acute distress. Vital signs are stable and have been reviewed by me. Nursing notes were reviewed. HEENT: Atraumatic, normocephalic, pupils equal and reactive bilaterally, negative for conjunctival pallor or scleral icterus, mucous membranes moist, trachea midline. No drooling or trismus noted. No meningeal signs. No hot potato voice noted. Lungs: Clear to auscultation bilaterally. No wheezes, rales, or rhonchi. Chest nontender. Normal work of breathing, no accessory muscles used. Heart: S1S2, regular rate and rhythm without overt murmur, gallops, or rubs. No JVD. No peripheral edema Abdomen: Soft, nondistended, nontender. Normoactive bowel sounds. Negative for masses or costovertebral tenderness. Skin: Intact, warm, dry. No lesions or rashes noted. Hematologic: No petechiae or purpra. Mucosa appropriate color and normal nail bed color and refill. Extremities: Atraumatic, moves all extremities per self without difficulty or deficits, negative for cords or calf pain. Neurovascular unremarkable. Neuro: Awake, alert, oriented. Cranial nerves II through XII unremarkable. Cerebellum unremarkable. Motor and sensory unremarkable throughout. Exam nonfocal. Psychiatric: Mood and affect are appropriate. Normal thought process. Answering questions appropriately. Notes: *This patient was seen and evaluated during the 2019 SARS-CoV-2 novel coronavirus pandemic period. Community viral transmission is ongoing at time of this encounter and the emergency department is operating under pandemic response procedures. Patient is a 35-year-old female who presents to the emergency room with complaints of right upper quadrant pain that she states is "under my ribs". She has noticed this pain intermittently over the past 3 to 4 months that she states comes and goes. She does not associate it with anything in particular. Not associated with food. She states it is not related to her gallbladder she has had this removed 10+ years ago. Does notice it is worse in the morning. Her abdomen is nontender she does have some tenderness to the right lower chest wall. She also mentions she has had some dysuria but has not thought much of it. We will do basic lab work. She declines wanting a COVID-19 swab today. Serum lab work is unremarkable. Patient does have a urinary tract infection, cultures have been added. It is noted that her blood sugar is low at 67. She states she does feel "normal" it is not had any thought of her blood sugar being low. She is able to eat and drink without any problems. She states her mom has problems with hypoglycemia and does keep snacks readily available. Her blood sugar is normal now after eating. She states she recently got insurance so she will follow-up with her primary care provider for further care and management. Signs and symptoms of low blood sugar were reviewed and discussed with the patient and home care tips were given as well. I have talked with the patient about today's findings, in addition to providing specific details for plan of care. Reassessment at the time of disposition demonstrates that the patient is in no acute distress. The patient is stable for discharge, counseling was provided and we discussed in great detail signs and symptoms that would prompt them to return to the Emergency Department. Medication, follow up and supportive care measures were reviewed and discussed. Voices understanding and is agreeable to plan of care. Denies any further questions or concerns at this time. Diagnostics: CBC, CMP, UA, CXR, UC Therapeutics: IV fluids, Toradol, Rocephin Prescription: Bactrim DS, Pyridium Impression: UTI Hypoglycemia Plan: 1. You were evaluated today on an emergent basis. Your labs showed you had a low blood sugar today, continue to monitor for this at home. Try to eat small frequent meals throughout the day (have small snacks available if needed). You also had a UTI, please take the antibiotic as prescribed. Increase your fluid intake. 2. You can alternate Tylenol and ibuprofen as needed for pain and fever management. 3. We encourage you to follow up with your primary care provider and/or recommended specialist in the next few days for re-evaluation and further care/management. 4. If your symptoms should worsen, new symptoms develop or any of the signs and symptoms we discussed should arise please return to the emergency room or call 911 (if needed). Definitive disposition and diagnosis as appropriate pending reevaluation and review of above. Treatments BISQUE GRADER: Reports: NSAIDS, Other (see below) Other Treatments BISQUE GRADER: ibuprofen at 0930 this morning RUQ Pain Score (Numeric/FACES): 9 - Related Data Allergies Allergy/AdvReac Type Severity Reaction Status Date / Time adhesive Allergy Mild Rash Verified 11/01/20 14:03 Home Meds: Home Meds busPIRone [Buspar] 45 mg PO DAILY 07/15/18 [History] Sertraline HCl 150 mg PO DAILY 07/17/18 [History] Labetalol [Normodyne] 400 mg PO BID 07/18/18 [History] Diclofenac Sodium [Voltaren] 75 mg PO BIDMEALS #20 tab.cr 05/22/19 [Rx] Omeprazole 20 mg PO DAILY 11/01/20 [History] Phenazopyridine HCl [Pyridium] 100 mg PO TID 2 Days #6 tablet 11/01/20 [Rx] Sulfamethoxazole/Trimethoprim [Bactrim Ds Tablet] 1 each PO BID 5 Days #10 tablet 11/01/20 [Rx] Past Medical History HEENT History: Reports: None Cardiovascular History: Reports: Hypertension Respiratory History: Reports: None Gastrointestinal History: Reports: GERD Genitourinary History: Reports: Renal Calculus, UTI, Recurrent Other Genitourinary History: renal stents [employer] History: Reports: Musculoskeletal History: Reports: None Neurological History: Reports: None Psychiatric History: Reports: None Endocrine/Metabolic History: Reports: None Hematologic History: Reports: None Immunologic History: Reports: None Oncologic (Cancer) History: Reports: None Dermatologic History: Reports: None - Infectious Disease History Infectious Disease History: Reports: Chicken Pox, Hepatitis C - Past Surgical History Head Surgeries/Procedures: Reports: None HEENT Surgical History: Reports: None Cardiovascular Surgical History: Reports: None Respiratory Surgical History: Reports: None GI Surgical History: Reports: Cholecystectomy Female Surgical History: Reports: Section, Tubal Ligation, Other (See Below) Other Female Surgeries/Procedures: kidney stents Endocrine Surgical History: Reports: None Neurological Surgical History: Reports: None Musculoskeletal Surgical History: Reports: None Oncologic Surgical History: Reports: None Dermatological Surgical History: Reports: None Social & Family History - Family History Family Medical History: No Pertinent Family History - Tobacco Use Tobacco Use Status *Q: Former Tobacco User Used Tobacco, but Quit: Yes Month/Year Tobacco Last Used: 10/31 - Caffeine Use Caffeine Use: Reports: Tea Other Caffeine Use: rare caffeine use - Recreational Drug Use Recreational Drug Use: Yes Drug Use in Last 12 Months: Yes Recreational Drug Type: Reports: Marijuana/Hashish ED ROS GENERAL - Review of Systems Review Of Systems: Comprehensive ROS is negative, except as noted in HPI. ED EXAM, GENERAL - Physical Exam Exam: See Below (See dictation) Course - Vital Signs Last Recorded V/S: Last Vital Signs Temp 96.4 F L 11/01/20 13:59 Pulse 71 11/01/20 15:26 Resp 18 11/01/20 15:26 BP 166/105 H 11/01/20 15:26 Pulse Ox 97 11/01/20 15:26 - Orders/Labs/Meds Orders: Active Orders 24 hr Category Date Time Status Blood Glucose Check, Bedside [RC] ONETIME Care 11/01/20 15:24 Active Communication Order [RC] STAT Care 11/01/20 15:24 Active CULTURE URINE [MREF] Stat Lab 11/01/20 14:10 Received Labs: Laboratory Tests 08/09/21 08/09/21 08/09/21 Range/Units 14:10 14:10 14:34 WBC 5.70 (4.0-11.0) K/uL RBC 4.90 (4.30-5.90) M/uL Hgb 13.8 (12.0-16.0) g/dL Hct 42.7 (36.0-46.0) % MCV 87.1 (80.0-98.0) fL MCH 28.2 (27.0-32.0) pg MCHC 32.3 (31.0-37.0) g/dL RDW Std Deviation 47.5 (28.0-62.0) fl RDW Coeff of Lisa 15 (11.0-15.0) % Plt Count 158 (150-400) K/uL MPV 12.20 H (7.40-12.00) fL Neut % (Auto) 51.8 (48.0-80.0) % Lymph % (Auto) 31.2 (16.0-40.0) % Isabela % (Auto) 11.1 (0.0-15.0) % Eos % (Auto) 5.4 (0.0-7.0) % Baso % (Auto) 0.5 (0.0-1.5) % Neut # (Auto) 3.0 (1.4-5.7) K/uL Lymph # (Auto) 1.8 (0.6-2.4) K/uL Isabela # (Auto) 0.6 (0.0-0.8) K/uL Eos # (Auto) 0.3 (0.0-0.7) K/uL Baso # (Auto) 0.0 (0.0-0.1) K/uL Nucleated RBC % 0.0 /100WBC Nucleated RBCs # 0 K/uL Sodium (136-145) mmol/L Potassium (3.5-5.1) mmol/L Chloride (98-107) mmol/L Carbon Dioxide (21.0-32.0) mmol/L BUN (7.0-18.0) mg/dL Creatinine (0.6-1.0) mg/dL Est Cr Clr Drug Dosing mL/min Estimated GFR (MDRD) ml/min Glucose (74-106) mg/dL Calcium (8.5-10.1) mg/dL Total Bilirubin (0.2-1.0) mg/dL AST (15-37) IU/L ALT (14-63) IU/L Alkaline Phosphatase (46-116) U/L Total Protein (6.4-8.2) g/dL Albumin (3.4-5.0) g/dL Globulin (2.6-4.0) g/dL Albumin/Globulin Ratio (0.9-1.6) Lipase (73-393) U/L Urine Color YELLOW Urine Appearance SLT CLOUDY Urine pH 6.0 (5.0-8.0) Ur Specific Gardner 1.025 (1.001-1.035) Urine Protein NEGATIVE (NEGATIVE) mg/dL Urine Glucose (UA) NEGATIVE (NEGATIVE) mg/dL Urine Ketones NEGATIVE (NEGATIVE) mg/dL Urine Occult Blood NEGATIVE (NEGATIVE) Urine Nitrite NEGATIVE (NEGATIVE) Urine Bilirubin NEGATIVE (NEGATIVE) Urine Urobilinogen 0.2 (<2.0) EU/dL Ur Leukocyte Esterase TRACE H (NEGATIVE) Urine RBC 0-1 (0-2/HPF) Urine WBC 15-20 (0-5/HPF) Ur Epithelial Cells OCCASIONAL (NONE-FEW) Urine Bacteria 4+ H (NEGATIVE) Urine Mucus LIGHT (NONE-MOD) Urine HCG, Qual NEGATIVE (NEGATIVE) 11/01/20 Range/Units 14:34 WBC (4.0-11.0) K/uL RBC (4.30-5.90) M/uL Hgb (12.0-16.0) g/dL Hct (36.0-46.0) % MCV (80.0-98.0) fL MCH (27.0-32.0) pg MCHC (31.0-37.0) g/dL RDW Std Deviation (28.0-62.0) fl RDW Coeff of Lisa (11.0-15.0) % Plt Count (150-400) K/uL MPV (7.40-12.00) fL Neut % (Auto) (48.0-80.0) % Lymph % (Auto) (16.0-40.0) % Isabela % (Auto) (0.0-15.0) % Eos % (Auto) (0.0-7.0) % Baso % (Auto) (0.0-1.5) % Neut # (Auto) (1.4-5.7) K/uL Lymph # (Auto) (0.6-2.4) K/uL Isabela # (Auto) (0.0-0.8) K/uL Eos # (Auto) (0.0-0.7) K/uL Baso # (Auto) (0.0-0.1) K/uL Nucleated RBC % /100WBC Nucleated RBCs # K/uL Sodium 138 (136-145) mmol/L Potassium 3.9 (3.5-5.1) mmol/L Chloride 102 (98-107) mmol/L Carbon Dioxide 30.0 (21.0-32.0) mmol/L BUN 13 (7.0-18.0) mg/dL Creatinine 0.9 (0.6-1.0) mg/dL Est Cr Clr Drug Dosing 72.17 mL/min Estimated GFR (MDRD) > 60.0 ml/min Glucose 67 L (74-106) mg/dL Calcium 8.4 L (8.5-10.1) mg/dL Total Bilirubin 1.0 (0.2-1.0) mg/dL AST 60 H (15-37) IU/L ALT 92 H (14-63) IU/L Alkaline Phosphatase 66 (46-116) U/L Total Protein 6.9 (6.4-8.2) g/dL Albumin 3.5 (3.4-5.0) g/dL Globulin 3.4 (2.6-4.0) g/dL Albumin/Globulin Ratio 1.0 (0.9-1.6) Lipase 75 (73-393) U/L Urine Color Urine Appearance Urine pH (5.0-8.0) Ur Specific Gardner (1.001-1.035) Urine Protein (NEGATIVE) mg/dL Urine Glucose (UA) (NEGATIVE) mg/dL Urine Ketones (NEGATIVE) mg/dL Urine Occult Blood (NEGATIVE) Urine Nitrite (NEGATIVE) Urine Bilirubin (NEGATIVE) Urine Urobilinogen (<2.0) EU/dL Ur Leukocyte Esterase (NEGATIVE) Urine RBC (0-2/HPF) Urine WBC (0-5/HPF) Ur Epithelial Cells (NONE-FEW) Urine Bacteria (NEGATIVE) Urine Mucus (NONE-MOD) Urine HCG, Qual (NEGATIVE) Meds: Medications Discontinued Medications Generic Name Dose Route Start Last Admin Trade Name Prudence PRN Reason Stop Dose Admin Sodium Chloride 1,000 mls @ 999 mls/hr 11/01/20 14:23 11/01/20 14:33 Normal Saline IV 11/01/20 15:23 999 mls/hr STAT ONE Administration Ceftriaxone Sodium/Dextrose 1 50 mls @ 100 mls/hr 11/01/20 14:57 11/01/20 15:22 gm/ Premix IV 11/01/20 15:26 100 mls/hr ONETIME ONE Administration Ketorolac Tromethamine 30 mg 11/01/20 14:26 11/01/20 14:39 Ketorolac 30 Mg/Ml Sdv IVPUSH 11/01/20 14:27 30 mg ONETIME ONE Administration Departure - Departure Time of Disposition: 15:38 Disposition: Home, Self-Care 01 Clinical Impression: Hypoglycemia Urinary tract infection Qualifiers: Urinary tract infection type: acute cystitis Hematuria presence: without hematuria Qualified Code(s): N30.00 - Acute cystitis without hematuria - Discharge Information Prescriptions: Sulfamethoxazole/Trimethoprim [Bactrim Ds Tablet] 1 each PO BID 5 Days #10 tablet Instructions: Urinary Tract Infection, Adult, [id number] Referrals: PCP,None [Primary Care Provider] - Forms: ED Department Discharge Additional Instructions: The following information is given to patients seen in the emergency department who are being discharged to home. This information is to outline your options for follow-up care. We provide all patients seen in our emergency department with a follow-up referral. The need for follow-up, as well as the timing and circumstances, are variable depending upon the specifics of your emergency department visit. If you don't have a primary care physician on staff, we will provide you with a referral. We always advise you to contact your personal physician following an emergency department visit to inform them of the circumstance of the visit and for follow-up with them and/or the need for any referrals to a consulting specialist. The emergency department will also refer you to a specialist when appropriate. This referral assures that you have the opportunity for follow-up care with a specialist. All of these measure are taken in an effort to provide you with opt imal care, which includes your follow-up. Under all circumstances we always encourage you to contact your private physician who remains a resource for coordinating your care. When calling for follow-up care, please make the office aware that this follow-up is from your recent emergency room visit. If for any reason you are refused follow-up, please contact the [facility] Emergency Department at and asked to speak to the emergency department charge nurse. [facility] [address] [place] [address] [facility] [address] [place] [address] Thank you for choosing the [facility] emergency department in [place] for your medical needs today. It was a pleasure caring for you. Today you were seen in the emergency department for UTI. 1. You were evaluated today on an emergent basis. Your labs showed you had a low blood sugar today, continue to monitor for this at home. Try to eat small frequent meals throughout the day (have small snacks available if needed). You also had a UTI, please take the antibiotic as prescribed. Increase your fluid intake. 2. You can alternate Tylenol and ibuprofen as needed for pain and fever managem ent. 3. We encourage you to follow up with your primary care provider and/or recommended specialist in the next few days for re-evaluation and further care/management. 4. If your symptoms should worsen, new symptoms develop or any of the signs and symptoms we discussed should arise please return to the emergency room or call 911 (if needed). Sepsis Event Note (ED) - Evaluation Sepsis Screening Result: No Definite Risk - Focused Exam Vital Signs: Vital Signs Temp Pulse Resp BP Pulse Ox 11/01/20 15:26 71 18 166/105 H 97 11/01/20 14:41 82 18 159/96 H 97 11/01/20 13:59 96.4 F L 61 16 147/91 H 99 - My Orders Last 24 Hours: My Active Orders 11/01/20 14:10 CULTURE URINE [MREF] Stat 11/01/20 15:24 Blood Glucose Check, Bedside [RC] ONETIME Communication Order [RC] STAT - Assessment/Plan Last 24 Hours: My Active Orders 11/01/20 14:10 CULTURE URINE [MREF] Stat 11/01/20 15:24 Blood Glucose Check, Bedside [RC] ONETIME Communication Order [RC] STAT
[2020-11-01] MEDS ORDERED: cefTRIAXone 1 GM in Premix Bag 1 BAG IV ONE (14:57)
[2020-11-01 15:08] LABS: BLOOD UREA NITROGEN,BUN 13 mg/dL (7.0-18.0); CHLORIDE,CL 102 mmol/L (98-107); LIPASE 75 U/L (73-393); POTASSIUM,K 3.9 mmol/L (3.5-5.1); SODIUM,NA 138 mmol/L (136-145)
[2020-11-01 15:15] LABS: GLUCOSE RANDOM 67 mg/dL (74-106)
--- NOTE | 2020-11-01 15:35 | CR ---
INDICATION: pain, shortness of breath TECHNIQUE: Chest 2 views. COMPARISON: None. FINDINGS: Cardiovascular and mediastinum: Heart size and vasculature are normal in caliber and appearance. Mediastinum is within normal limits. Lungs and pleural spaces: Lungs are clear. No sign of infiltrate or mass. No sign of pleural effusion. No pneumothorax. Bones and soft tissues: No significant findings. IMPRESSION: Unremarkable chest. Dictated by: Parmjit Delacruz MD @ 11/01/2020 15:34:49 (Electronically Signed)
== END 2020-11-01 16:27 | disposition home or self-care (01) ==
LOC: MW.ED 12:39
DX: N30.00 Acute cystitis without hematuria (principal); E16.2 Hypoglycemia, unspecified; I10 Essential (primary) hypertension; K21.9 Gastro-esophageal reflux disease without esophagitis; Z91.048 Other nonmedicinal substance allergy status; Z79.899 Other long term (current) drug therapy; Z87.891 Personal history of nicotine dependence
CPT/HCPCS: 36415; 71046; 80053; 81001; 81025; 82947; 83690; 85025; 87086; 96365; 96375; 99283; J0696; J1885; J7030; 87088; 87186

== ENCOUNTER 2022-06-27 11:27 | Emergency (ER) | payer MEDICAID ==
[2022-06-27] MEDS ORDERED: Lisinopril 10 MG Tab PO ONE (11:52)
== END 2022-06-27 12:34 ==
LOC: MW.ED 11:27
DX: I10 Essential (primary) hypertension (principal); Z91.048 Other nonmedicinal substance allergy status; Z91.148 Patient's other noncompliance with medication regimen for other reason; Z79.899 Other long term (current) drug therapy
CPT/HCPCS: 99283; A9270

== ENCOUNTER 2023-04-05 21:54 | Emergency (ER) | payer MEDICAID ==
[2023-04-05] MEDS ORDERED: cloNIDine 0.1 MG Tab PO ONE (22:23)
[2023-04-05 22:36] LABS: APPEARANCE,URINE SLT CLOUDY; BILIRUBIN,URINE NEGATIVE (NEGATIVE); COLOR,URINE YELLOW; GLUCOSE,URINE NEGATIVE (NEGATIVE); KETONES,URINE NEGATIVE (NEGATIVE); LEUKOCYTE ESTERASE,URINE SMALL (NEGATIVE); NITRITE,URINE POSITIVE (NEGATIVE); OCCULT BLOOD,URINE NEGATIVE (NEGATIVE); PH,URINE 6.5 (5.0-8.0); PROTEIN,URINE NEGATIVE (NEGATIVE); UROBILINOGEN,URINE 0.2 EU/dL (<2.0)
[2023-04-05 22:44] LABS: AMPHETAMINES SCREEN, URINE NEGATIVE (CUTOFF=500); BARBITURATE SCREEN,URINE NEGATIVE (CUTOFF=200); BENZODIAZEPINES SCREEN,URINE NEGATIVE (CUTOFF=150); BUPRENORPHINE SCREEN,URINE PRESUMPTIVE POSITIVE (CUTOFF=10); METHADONE SCREEN, URINE NEGATIVE (CUTOFF=200); METHAMPHETAMINES SCREEN, URINE NEGATIVE (CUTOFF=500); OXYCODONE SCREEN,URINE NEGATIVE (CUT0FF=100); PCP SCREEN,URINE NEGATIVE (CUTOFF=25); THC SCREEN,URINE 20 NG/ML PRESUMPTIVE POSITIVE (CUTOFF=50)
[2023-04-05 22:49] LABS: BACTERIA,URINE MANY (NEGATIVE); EPITHELIAL CELLS,URINE FEW (NONE-FEW); WBC,URINE 20-25 (0-5/HPF)
[2023-04-05 22:54] LABS: BILIRUBIN TOTAL 1.2 mg/dL (0.2-1.0); CALCIUM 9.3 mg/dL (8.5-10.1); CARBON DIOXIDE,CO2 30.3 mmol/L (21.0-32.0); EST CRCL DRUG DOSING (CG) 60.92 mL/min; POTASSIUM,K 4.3 mmol/L (3.5-5.1); PROTEIN TOTAL,TP 7.9 g/dL (6.4-8.2)
[2023-04-05] MEDS ORDERED: amLODIPine 5 MG Tab PO ONE (23:04)
[2023-04-05] MEDS ORDERED: Lisinopril 10 MG Tab PO ONE (23:29)
== END 2023-04-06 00:34 | disposition home or self-care (01) ==
LOC: MW.ED 21:54
DX: I10 Essential (primary) hypertension (principal); Z91.048 Other nonmedicinal substance allergy status
CPT/HCPCS: 36415; 80053; 80305; 81001; 81025; 84484; 93005; 99284; A9270; 93010; 99283

== ENCOUNTER 2023-04-14 21:27 | Emergency (ER) | payer OTHER, MEDICAID ==
[2023-04-14] MEDS ORDERED: Sodium Chloride 0.9% 2.5 ML Syringe FLUSH PRN (22:12)
[2023-04-14] MEDS ORDERED: Sodium Chloride 0.9% 1,000 ML IV ONE (22:12)
[2023-04-14] MEDS ORDERED: Sodium Chloride 0.9% 10 ML Syringe FLUSH PRN (22:12)
[2023-04-14] MEDS ORDERED: diphenhydrAMINE 50 MG/ML SDV IVPUSH ONE (22:14)
[2023-04-14] MEDS ORDERED: Metoclopramide 10 MG/2 ML SDV IVPUSH ONE (22:14)
[2023-04-14 23:01] LABS: BASOPHILS PERCENT AUTO 1.3 % (0.0-1.0); EOSINOPHILS PERCENT AUTO 2.6 % (0.0-6.0); HEMATOCRIT 51.3 % (37.0-47.0); HEMOGLOBIN 17.4 g/dL (12.0-16.0); IMMATURE GRAN ABSOLUTE AUTO 0.02 K/uL (0.00-0.05); IMMATURE GRAN PERCENT AUTO 0.3 % (0.0-0.4); LYMPHOCYTES ABSOLUTE AUTO 2.37 K/uL (1.00-4.80); LYMPHOCYTES PERCENT AUTO 31.1 % (24.0-44.0); MEAN CORPUSCULAR HGB CONC 33.9 g/dL (32.0-36.0); MEAN CORPUSCULAR VOLUME 88.4 fL (83.0-99.0); MEAN PLATELET VOLUME 12.6 fL (9.4-12.3); MONOCYTES ABSOLUTE AUTO 0.61 K/uL (0.00-0.80); NEUTROPHILS ABSOLUTE AUTO 4.33 K/uL (1.80-7.70); NEUTROPHILS PERCENT AUTO 56.7 % (41.0-71.0); PLATELET COUNT,PLT 161 K/uL (150-400); WHITE BLOOD CELL COUNT,WBC 7.63 K/uL (3.9-11.3)
[2023-04-14 23:25] LABS: A/G RATIO 1.1 (0.9-1.6); ALBUMIN 4.4 g/dL (3.4-5.0); BILIRUBIN TOTAL 1.5 mg/dL (0.2-1.0); CARBON DIOXIDE,CO2 30.2 mmol/L (21.0-32.0); EST CRCL DRUG DOSING (CG) 63.72 mL/min; PROTEIN TOTAL,TP 8.4 g/dL (6.4-8.2)
== END 2023-04-14 23:53 ==
LOC: MW.ED 21:27
DX: I10 Essential (primary) hypertension (principal); Z91.048 Other nonmedicinal substance allergy status; Z79.899 Other long term (current) drug therapy
CPT/HCPCS: 36415; 70450; 80053; 84484; 85025; 93005; 96374; 96375; 99284; J1200; J2765; J3490; J7030; 93010

== ENCOUNTER 2023-04-15 09:38 | Emergency (ER) | payer OTHER, MEDICAID ==
[2023-04-15] MEDS ORDERED: cloNIDine 0.1 MG Tab PO ONE (10:31)
[2023-04-15] MEDS ORDERED: Lisinopril 10 MG Tab PO ONE (10:35)
== END 2023-04-15 11:05 | disposition home or self-care (01) ==
LOC: MW.ED 09:38
DX: I10 Essential (primary) hypertension (principal); Z91.048 Other nonmedicinal substance allergy status
CPT/HCPCS: 99284; A9270; 93010; 99283

== ENCOUNTER 2023-04-15 21:12 | Emergency (ER) | payer MEDICAID ==
[2023-04-15 23:25] LABS: BASOPHILS ABSOLUTE AUTO 0.09 K/uL (0.00-0.20); BASOPHILS PERCENT AUTO 1.5 % (0.0-1.0); EOSINOPHILS ABSOLUTE AUTO 0.19 K/uL (0.00-0.45); EOSINOPHILS PERCENT AUTO 3.2 % (0.0-6.0); HEMATOCRIT 49.6 % (37.0-47.0); HEMOGLOBIN 16.8 g/dL (12.0-16.0); IMMATURE GRAN ABSOLUTE AUTO 0.01 K/uL (0.00-0.05); IMMATURE GRAN PERCENT AUTO 0.2 % (0.0-0.4); LYMPHOCYTES ABSOLUTE AUTO 2.18 K/uL (1.00-4.80); LYMPHOCYTES PERCENT AUTO 36.8 % (24.0-44.0); MEAN CORPUSCULAR HEMOGLOBIN 30.1 pg (28.0-32.0); MEAN CORPUSCULAR HGB CONC 33.9 g/dL (32.0-36.0); MEAN CORPUSCULAR VOLUME 88.9 fL (83.0-99.0); MEAN PLATELET VOLUME 12.7 fL (9.4-12.3); MONOCYTES ABSOLUTE AUTO 0.49 K/uL (0.00-0.80); MONOCYTES PERCENT AUTO 8.3 % (0.0-8.0); NEUTROPHILS ABSOLUTE AUTO 2.96 K/uL (1.80-7.70); PLATELET COUNT,PLT 152 K/uL (150-400); RED BLOOD CELL COUNT 5.58 M/uL (4.10-5.30); WHITE BLOOD CELL COUNT,WBC 5.92 K/uL (3.9-11.3)
[2023-04-15 23:53] LABS: A/G RATIO 1.1 (0.9-1.6); ALANINE AMINOTRANSFERASE,ALT 186 IU/L (14-63); ALBUMIN 4.2 g/dL (3.4-5.0); ALKALINE PHOSPHATASE 69 U/L (46-116); ASPARTATE AMNIOTRANSFERASE,AST 96 IU/L (15-37); BILIRUBIN TOTAL 1.5 mg/dL (0.2-1.0); BLOOD UREA NITROGEN,BUN 10 mg/dL (7.0-18.0); CALCIUM 10.4 mg/dL (8.5-10.1); CARBON DIOXIDE,CO2 30.2 mmol/L (21.0-32.0); CHLORIDE,CL 107 mmol/L (98-107); CREATININE 0.9 mg/dL (0.6-1.0); GLUCOSE RANDOM 96 mg/dL (74-106); LIPASE 66 U/L (16-77); POTASSIUM,K 4.7 mmol/L (3.5-5.1); PROTEIN TOTAL,TP 8.1 g/dL (6.4-8.2); SODIUM,NA 146 mmol/L (136-145)
[2023-04-15 23:58] LABS: ESTIMATED GFR 84 mL/min (>60)
[2023-04-16] MEDS ORDERED: cloNIDine 0.1 MG Tab PO ONE (00:58)
== END 2023-04-16 01:49 ==
LOC: MW.ED 21:12
DX: I10 Essential (primary) hypertension (principal); Z76.0 Encounter for issue of repeat prescription; Z02.89 Encounter for other administrative examinations; Z91.048 Other nonmedicinal substance allergy status
CPT/HCPCS: 36415; 70450; 80053; 83690; 84484; 85025; 93005; 99284; A9270; 93010; 99283

== ENCOUNTER 2024-05-30 10:28 | Emergency (ER) | payer MEDICAID ==
[2024-05-30] MEDS: Sodium Chloride 0.9% 1,000 ML IV ONE (11:17)
[2024-05-30] MEDS: Ketorolac 30 MG/ML SDV IVPUSH ONE (11:18)
[2024-05-30] MEDS: Ondansetron 4 MG/2 ML SDV IVPUSH ONE (11:25)
[2024-05-30 11:29] LABS: BASOPHILS ABSOLUTE AUTO 0.02 K/uL (0.00-0.20); BASOPHILS PERCENT AUTO 0.3 % (0.0-1.0); EOSINOPHILS ABSOLUTE AUTO 0.01 K/uL (0.00-0.45); EOSINOPHILS PERCENT AUTO 0.2 % (0.0-6.0); HEMATOCRIT 45.2 % (37.0-47.0); HEMOGLOBIN 15.6 g/dL (12.0-16.0); IMMATURE GRAN ABSOLUTE AUTO 0.01 K/uL (0.00-0.05); IMMATURE GRAN PERCENT AUTO 0.2 % (0.0-0.4); LYMPHOCYTES ABSOLUTE AUTO 1.57 K/uL (1.00-4.80); LYMPHOCYTES PERCENT AUTO 26.5 % (24.0-44.0); MEAN CORPUSCULAR HEMOGLOBIN 29.1 pg (28.0-32.0); MEAN CORPUSCULAR HGB CONC 34.5 g/dL (32.0-36.0); MEAN CORPUSCULAR VOLUME 84.2 fL (83.0-99.0); MEAN PLATELET VOLUME 11.4 fL (9.4-12.3); MONOCYTES ABSOLUTE AUTO 0.41 K/uL (0.00-0.80); MONOCYTES PERCENT AUTO 6.9 % (0.0-8.0); NEUTROPHILS PERCENT AUTO 65.9 % (41.0-71.0); PLATELET COUNT,PLT 101 K/uL (150-400); RED BLOOD CELL COUNT 5.37 M/uL (4.10-5.30); WHITE BLOOD CELL COUNT,WBC 5.92 K/uL (3.9-11.3)
[2024-05-30 11:54] LABS: A/G RATIO 0.9 (0.9-1.6); ALBUMIN 3.7 g/dL (3.4-5.0); BILIRUBIN TOTAL 1.5 mg/dL (0.2-1.0); CALCIUM 9.4 mg/dL (8.5-10.1); CREATININE 1.1 mg/dL (0.6-1.0); EST CRCL DRUG DOSING (CG) 57.36 mL/min; POTASSIUM,K 3.3 mmol/L (3.5-5.1); PROTEIN TOTAL,TP 7.9 g/dL (6.4-8.2)
[2024-05-30 12:23] LABS: APPEARANCE,URINE SLT CLOUDY; BILIRUBIN,URINE NEGATIVE (NEGATIVE); COLOR,URINE YELLOW; GLUCOSE,URINE NEGATIVE (NEGATIVE); KETONES,URINE TRACE mg/dL (NEGATIVE); LEUKOCYTE ESTERASE,URINE NEGATIVE (NEGATIVE); NITRITE,URINE POSITIVE (NEGATIVE); OCCULT BLOOD,URINE NEGATIVE (NEGATIVE); PH,URINE 6.5 (5.0-8.0); PROTEIN,URINE 100 mg/dL (NEGATIVE)
[2024-05-30 12:39] LABS: BACTERIA,URINE 3+ (NEGATIVE); EPITHELIAL CELLS,URINE FEW (NONE-FEW); RBC,URINE 0-2 (0-2/HPF)
[2024-05-30] MEDS: Cefdinir 300 MG Cap PO ONE (12:49)
== END 2024-05-30 13:40 | disposition home or self-care (01) ==
LOC: MW.ED 10:28
DX: K52.9 Noninfective gastroenteritis and colitis, unspecified (principal); N30.00 Acute cystitis without hematuria; I10 Essential (primary) hypertension; F17.210 Nicotine dependence, cigarettes, uncomplicated; Z75.8 Other problems related to medical facilities and other health care; Z91.048 Other nonmedicinal substance allergy status; Z79.899 Other long term (current) drug therapy; Z90.49 Acquired absence of other specified parts of digestive tract
CPT/HCPCS: 36415; 71045; 80053; 81001; 83690; 85025; 87086; 87428; 96361; 96374; 96375; 99284; A9270; J1885; J2405; J7030; 87088; 87186

== ENCOUNTER 2024-08-20 18:31 | Emergency (ER) | payer MEDICAID | END 2024-08-20 21:54 | disposition left against medical advice (07) | LOC: MW.ED 18:31 | DX: Z53.21 Procedure and treatment not carried out due to patient leaving prior to being seen by health care provider (principal) ==